=== PATIENT | male | born 1945 | race Caucasian/White ===

== ENCOUNTER → 2017-02-28 | Outpatient (CLI) | payer BC ==
[~2017-02-28] MED LIST: ASPI81TA28 PO; CEPH500C PO; CHOL20007 PO; CZR50 PO; GLUCTAB7 PO; LPT10 PO; OMEP40CA41 PO; PSEU60TA80 PO; URX/10 PO
[2017-02-28 17:14] LABS: BASO % 0.5 %; BASO ABS # 0.03 K/uL (0-0.2); COMPLETE YES; EOS % 2.5 %; HEMATOCRIT 39.6 % (42-52); IG% 0.2 %; LYMPH % 33.7 %; LYMPH ABS # 1.92 K/uL (1.2-3.4); MEAN CELL VOLUME 94.7 fL (80-100); MEAN CORPUSCULAR HEMOGLOBIN 30.9 pg (25-34); MEAN CORPUSCULAR HGB CONC 32.6 g/dl (32-36); MEAN PLATELET VOLUME 9.5 fL (7.4-10.4); MONO % 8.4 %; NEUT % 54.7 %; PLATELET COUNT 266 K/uL (130-400); RED BLOOD COUNT 4.18 M/uL (4.7-6.1)
[2017-02-28 17:21] LABS: ALT/SGPT 96 U/L (12-78); BLOOD UREA NITROGEN 21 mg/dl (7-18); BUN/CREATININE RATIO 19.2 (10-20); CALCIUM 8.8 mg/dl (8.5-10.1); CARBON DIOXIDE 27 mmol/L (21-32); CHLORIDE 107 mmol/L (98-107); CHOLESTEROL 129 mg/dl (0-200); GLUCOSE 95 mg/dl (70-99); POTASSIUM 4.2 mmol/L (3.5-5.1); SODIUM 140 mmol/L (136-145); TRIGLYCERIDES 93 mg/dl (0-150); VERY LOW DENSITY LIPOPROT CALC 19 mg/dl
[2017-02-28 17:24] LABS: ALB/GLOB RATIO 1.2 (0.9-2); ALKALINE PHOSPHATASE 73 U/L (45-117); AST/SGOT 30 U/L (15-37); CHOLESTEROL/HDL RATIO 2.3; HDL CHOLESTEROL 57 mg/dl; LDL CHOLESTEROL CALCULATED 53 mg/dl
== END | disposition home or self-care (01) ==
LOC: C.LABBC 14:51
PROVIDERS: ATTEND Internal Medicine Geriatric Medicine
DX: I10 Essential (primary) hypertension (principal); J32.9 Chronic sinusitis, unspecified; M19.90 Unspecified osteoarthritis, unspecified site; K58.9 Irritable bowel syndrome, unspecified

== ENCOUNTER → 2017-03-15 | Day surgery (SDC) | payer BC ==
[2017-03-03 11:59] VITALS: BMI 24.0
[~2017-03-15] VITALS: Ht 172.7 cm; Wt 72.7 kg
[~2017-03-15] MED LIST changes: -CEPH500C PO; -OMEP40CA41 PO; +PROPOFOL IV EMULSION 10 MG/ML 20 ML VIAL IV ONE; +SODIUM CHLORIDE 0.9% 500ML 500 ML IV ONE
[2017-03-15 08:08] VITALS: Ht 172.7 cm; Wt 72.7 kg
--- NOTE | 2017-03-15 08:41 | Endo History and Physical ---
History & Physical Date of Service: Mar 15, 2017. Chief Complaint: screening Referring Physician: Dr. Henry Zhu History of Present Illness 71 yo CM who presents for screening colonoscopy. Past Surgical History Hx Cardiac Surgery: No Hx Internal Defibrillator: No Hx Pacemaker: No Hx Abdominal Surgery: No Hx of Implantable Prosthesis: No Hx Post-Op Nausea and Vomiting: No Hx Cancer Surgery: No Hx Thoracic Surgery: No Hx Orthopedic: Yes (RT FOOT BUNIONECTOMY) Hx Urinary Tract Surgery: No Social History Smoking Status: Never Smoker Hx Substance Use: No Hx Alcohol Use: Yes (OCCASSIONALLY A GLASS OF WINE) Allergies Coded Allergies: Clarithromycin (Unverified Allergy, Unknown, UNKNOWN, 03/15/17) Current Medications Reported Home Medications Medications Dose Route/Sig Max Daily Dose Days Date Category Aspirin Ec (Aspirin) 81 Mg Tab 81 Mg PO QPM 03/03/17 Reported Glucosamine Chondroitin (Ogtfxulpkay-Grpsinupxfe-Zor C-) 1 Tab Tab 1 Tab PO BID 03/03/17 Reported Vitamin D3 (Cholecalciferol) 2,000 Unit Tab 5,000 Units PO QAM 90 03/03/17 Reported Mucinex D (Pseudoephedrine-Guaifenesin) 1 Tab Tab 1 Tab PO BID 10/15/15 Reported Alfuzosin HCl ER (Alfuzosin HCl) 10 Mg Tab 10 Mg PO QPM 10/15/15 Reported Losartan Potassium 50 Mg Tab 50 Mg PO QAM 10/15/15 Reported Atorvastatin Calcium (Atorvastatin) 10 Mg Tab 10 Mg PO QAM 10/15/15 Reported Vital Signs Weight (Kilograms): 72.73 Height (Feet): 5 Height (Inches): 8 Date Time Temp Pulse Resp B/P (MAP) Pulse Ox O2 Delivery O2 Flow Rate FiO2 03/15/17 08:13 36.1 81 18 154/81 (105) 97 Room Air Physical Exam General Appearance: WD/WN, no apparent distress Respiratory/Chest: Auscultation: breath sounds normal Cardiovascular: Heart Auscultation: RRR Abdomen: Bowel Sounds: normal Inspection & Palpation: soft, non-distended, no tenderness, guarding & rebound Assessment and Plan Assessment: 71 yo CM who presents for screening colonoscopy. Plan: Proceed with colonoscopy.
--- NOTE | 2017-03-15 09:01 | Discharge Instructions ---
Endoscopy Patient Instructions Date / Procedure(s) Performed Mar 15, 2017. Colonoscopy Allergy Information Coded Allergies: Clarithromycin (Unverified Allergy, Unknown, UNKNOWN, 03/15/17) Discharge Date / Findings Mar 15, 2017. Colon polyps Internal hemorrhoids Medication Instructions OK to resume all medications today as prescribed Reported Home Medications Medications Dose Route/Sig Max Daily Dose Days Date Category Aspirin Ec (Aspirin) 81 Mg Tab 81 Mg PO QPM 03/03/17 Reported Glucosamine Chondroitin (Dviewoahxzx-Bxwtolqrorh-Rfu C-) 1 Tab Tab 1 Tab PO BID 03/03/17 Reported Vitamin D3 (Cholecalciferol) 2,000 Unit Tab 5,000 Units PO QAM 90 03/03/17 Reported Mucinex D (Pseudoephedrine-Guaifenesin) 1 Tab Tab 1 Tab PO BID 10/15/15 Reported Alfuzosin HCl ER (Alfuzosin HCl) 10 Mg Tab 10 Mg PO QPM 10/15/15 Reported Losartan Potassium 50 Mg Tab 50 Mg PO QAM 10/15/15 Reported Atorvastatin Calcium (Atorvastatin) 10 Mg Tab 10 Mg PO QAM 10/15/15 Reported Provider Instructions Activity Restrictions - No exercising or heavy lifting for 24 hours. - Do not drink alcohol the day of the procedure. - Do not drive a car or operate machinery until the day after the procedure. - Do not make any important decisions or sign important papers in 24 hours after the procedure. Following Day: - Return to full activity which may include returning to work/school. Diet Start your diet with liquids and light foods (jello, soup, juice, toast). Then eat your usual diet if not nauseated. Treatment For Common After Affects For mild abdominal pain, bloating, or excessive gas: - Rest - Eat lightly - Lie on right side Follow-Up Information Follow-up with Dr. Henry Zhu as scheduled Anesthesia Information What You Should Know You have had a procedure that required some medicine to reduce anxiety and discomfort. This treatment is called moderate sedation. After receiving the treatment, you may be sleepy, but you will be able to breathe on your own. The effects of the treatment may last for several hours. Follow these instructions along with Activity/Diet recommendations noted above: * Do NOT do anything where dizziness or clumsiness would be dangerous. * Rest quietly at home today, then you can be up and about tomorrow. * Have a responsible person stay with you the rest of today. * You may have had an I.V. today. If so, you may take the dressing off later today. Recommendations Call your doctor if: * Trouble breathing * Continuous vomiting for more than 24 hours * Temperature above 101 degrees * Severe abdominal pain or bloating * Pain not relieved by pain medicine ordered * There is increased drainage or redness from any incision * A large amount of rectal bleeding greater than 2-3 tablespoons. (If you had a polyp/s removed or have hemorrhoids, a small amount of blood - from the rectum is to be expected.) * You have any unanswered questions or concerns. IN THE EVENT OF A SERIOUS EMERGENCY, GO TO THE NEAREST EMERGENCY ROOM Your discharge instructions were prepared by provider Obed Morris. Patient Instructions Signature Page French Pedro Patient (or Guardian) Signature/Date: I have read and understand the instructions given to me by my caregivers. Caregiver/RN/Doctor Signature/Date: The above-named patient and/or guardian has received patient instructions on this date. + Original Patient Signature Page (only) stays with chart. Please make copy for patient.
--- NOTE | 2017-03-15 09:06 | GI REPORT ---
Procedure Date: 03/15/2017 8:34 AM Procedure: Colonoscopy Indications: Screening for colorectal malignant neoplasm Medicines: Monitored Anesthesia Care Complications: No immediate complications. Estimated Blood Loss: Estimated blood loss: none. Procedure: Pre-Anesthesia Assessment: - Prior to the procedure, a History and Physical was performed, and patient medications and allergies were reviewed. The patient's tolerance of previous anesthesia was also reviewed. The risks and benefits of the procedure and the sedation options and risks were discussed with the patient. All questions were answered, and informed consent was obtained. Prior Anticoagulants: The patient has taken aspirin, last dose was 2 days prior to procedure. ASA Grade Assessment: II - A patient with mild systemic disease. After reviewing the risks and benefits, the patient was deemed in satisfactory condition to undergo the procedure. After I obtained informed consent, the scope was passed under direct vision. Throughout the procedure, the patient's blood pressure, pulse, and oxygen saturations were monitored continuously. The scope was introduced through the anus and advanced to the terminal ileum. The colonoscopy was performed without difficulty. The patient tolerated the procedure well. The quality of the bowel preparation was good. The terminal ileum, ileocecal valve, appendiceal orifice, and rectum were photographed. Findings: Two sessile polyps were found in the ascending colon. The polyps were 3 to 5 mm in size. These polyps were removed with a hot snare. Resection and retrieval were complete. Non-bleeding internal hemorrhoids were found during retroflexion. The hemorrhoids were small. Impression: - Two 3 to 5 mm polyps in the ascending colon, removed with a hot snare. Resected and retrieved. - Non-bleeding internal hemorrhoids. Recommendation: - Resume previous diet. - Continue present medications. - Await pathology results. - Repeat colonoscopy for surveillance based on pathology results. - Return to primary care physician as previously scheduled. Obed Morris DO 03/15/2017 9:06:07 AM This report has been signed electronically. Note Initiated On: 03/15/2017 8:34 AM I attest to the content of the Intraoperative Record and orders documented therein, exceptions below
--- NOTE | 2017-03-15 09:26 | Anesthesiology Progress Note ---
Anesthesia Post Op Note Date & Time Mar 15, 2017 at 09:26 Vital Signs Pain Intensity: 0 Vital Signs Past 12 Hours Date Time Temp Pulse Resp B/P (MAP) Pulse Ox O2 Delivery O2 Flow Rate FiO2 03/15/17 09:19 65 16 128/71 (90) 97 Room Air 03/15/17 09:04 67 16 99/55 (70) 97 Room Air 03/15/17 08:13 36.1 81 18 154/81 (105) 97 Room Air Notes Mental Status: alert / awake / arousable, participated in evaluation Pt Amnestic to Procedure: Yes Nausea / Vomiting: adequately controlled Pain: adequately controlled Airway Patency, RR, SpO2: stable & adequate BP & HR: stable & adequate Hydration State: stable & adequate Anesthetic Complications: no major complications apparent Awake, doing well, VSS.
[2017-03-15 09:34] VITALS: BP 134/81; PULSE 64; O2SAT 96
== END | disposition home health service (06) ==
LOC: C.GI 07:34
PROVIDERS: ATTEND Internal Medicine
DX: Z12.11 Encounter for screening for malignant neoplasm of colon (principal); D12.2 Benign neoplasm of ascending colon; K64.8 Other hemorrhoids; I10 Essential (primary) hypertension; Z88.1 Allergy status to other antibiotic agents; Z90.89 Acquired absence of other organs; Z79.82 Long term (current) use of aspirin

== ENCOUNTER → 2017-06-20 | Day surgery (SDC) | payer BC ==
[2017-06-10 08:07] VITALS: BMI 26.0
--- NOTE | 2017-06-10 08:41 | PAT Medication Instructions ---
Service Date Jun 10, 2017. Current Home Medication List Alfuzosin HCl (Alfuzosin HCl ER), 10 MG PO QPM Aspirin (Aspirin Ec), 81 MG PO QPM Atorvastatin (Atorvastatin Calcium), 10 MG PO QAM Cholecalciferol (Vitamin D3), 5,000 UNITS PO QAM Fluticasone Propionate (Nasal) (Flonase Allergy Relief), 2 SPRAYS RK UD PRN for PRN Cvesaqbmkyc-Rrptvmrqjqh-Nbd C- (Glucosamine Chondroitin), 1 TAB PO BID Losartan Potassium (Losartan Potassium), 50 MG PO QAM Protein (Whey Protein), 1 DOSE PO OCCASSIONALLY Pseudoephedrine-Guaifenesin (Mucinex D), 1 TAB PO BID Sildenafil Citrate (Viagra), 100 MG PO PRN Medication Instructions For Your Scheduled Surgery - Hold the following medications as of 06/10/17: Lhgbmmfiijy-Pjcgfyngzxz-Gfp C- (Glucosamine Chondroitin), 1 TAB PO BID - Hold the following medications 7 days prior to surgery per surgeon's instructions: Aspirin (Aspirin Ec), 81 MG PO QPM - Hold the following medications the morning of surgery: Cholecalciferol (Vitamin D3), 5,000 UNITS PO QAM Sildenafil Citrate (Viagra), 100 MG PO PRN Pseudoephedrine-Guaifenesin (Mucinex D), 1 TAB PO BID Losartan Potassium (Losartan Potassium), 50 MG PO QAM Protein (Whey Protein), 1 DOSE PO OCCASSIONALLY - Take the following medications the morning of surgery with a sip of water OTHERWISE NOTHING TO EAT OR DRINK AFTER MIDNIGHT: Atorvastatin (Atorvastatin Calcium), 10 MG PO QAM Fluticasone Propionate (Nasal) (Flonase Allergy Relief), 2 SPRAYS RK UD PRN for PRN - Take the following medications as scheduled the night before surgery: Pseudoephedrine-Guaifenesin (Mucinex D), 1 TAB PO BID Alfuzosin HCl (Alfuzosin HCl ER), 10 MG PO QPM If you have any questions please call us at [phone] or [phone] or [phone]
[2017-06-10 10:34] LABS: BASO % 0.6 %; BASO ABS # 0.04 K/uL (0-0.2); EOS % 2.1 %; EOS ABS # 0.14 K/uL (0-0.5); HEMATOCRIT 42.5 % (42-52); HEMOGLOBIN 14.3 g/dL (14.0-18.0); IG# 0.01 K/uL (0.00-0.02); LYMPH % 25.2 %; LYMPH ABS # 1.69 K/uL (1.2-3.4); MEAN CELL VOLUME 94.4 fL (80-100); MEAN CORPUSCULAR HEMOGLOBIN 31.8 pg (25-34); MEAN CORPUSCULAR HGB CONC 33.6 g/dl (32-36); MEAN PLATELET VOLUME 9.6 fL (7.4-10.4); MONO % 11.3 %; MONO ABS # 0.76 K/uL (0.11-0.59); NEUT % 60.7 %; NEUT ABS # 4.07 K/uL (1.4-6.5); PLATELET COUNT 255 K/uL (130-400); RED CELL DISTRIBUTION WIDTH SD 44.9 fL (36.4-46.3); WHITE BLOOD COUNT 6.71 K/uL (4.8-10.8)
[2017-06-10 10:41] LABS: CALCIUM 9.1 mg/dl (8.5-10.1); CREATININE 1.13 mg/dl (0.60-1.40); POTASSIUM 4.6 mmol/L (3.5-5.1)
[~2017-06-20] VITALS: Ht 170.2 cm; Wt 77.2 kg
[~2017-06-20] MED LIST changes: +AMIODARONE HCL INJ 50 MG/ML 3 ML VIAL ONE; +ATROPINE SULFATE 0.1 MG/ML 5ML SYR IV PRN; +BUPIVACAINE 0.5 % 5 MG/1 ML MPF 30ML VIAL ONE; +CEFAZOLIN 2000MG IV PUSH 10 ML IV SCH; +CEFAZOLIN SOD 1 GM VIAL ONE; +CEPH500C2 PO; +DEXAMETHASONE SOD INJ 4 MG/ML VIAL ONE; +EpHEDrine SULFATE INJ 50 MG/ML AMP IV PRN; +FENTANYL CITRATE INJ 50 MCG/1 ML 2 ML VIAL ONE; +FLUT0.15 NAE; +GLYCOPYRROLATE INJ 0.2 MG/ML VIAL ONE; +HYDR-5688 PO; +HYDROCODONE/ACETAMOPHEN 5/325MG TAB PO PRN; +HYDROmorphone INJ 1 MG/ML SYR IV PRN; +LACTATED RINGER'S 1000ML 1,000 ML IV SCH; +LIDOCAINE HCL 1% 20 ML VIAL ONE; +LIDOCAINE HCL 2% 2 ML VIAL (20MG/ML) ONE; +NEOSTIGMINE METHYLSULFATE 5 MG/5 ML SYR ONE; +ONDANSETRON INJ 2 MG/ML 2 ML VIAL IV PRN; +ONDANSETRON INJ 2 MG/ML 2 ML VIAL ONE; +PROT1POW7 PO; +ROCURONIUM BROMIDE 10 MG/ML 5 ML VIAL IV ONE; +SILD100T PO; -SODIUM CHLORIDE 0.9% 500ML 500 ML IV ONE
[2017-06-20 05:38] VITALS: BP 128/74; PULSE 83; TEMP 36.5; O2SAT 96; Ht 170.2 cm; Wt 77.2 kg
--- NOTE | 2017-06-20 06:48 | History & Physical Bridge Note ---
H&P Re-Evaluation Bridge Note: I have examined the patient, reviewed the History & Physical and in the interval since the performance of the History & Physical I have noted the following changes of clinical significance: No changes noted
--- NOTE | 2017-06-20 07:52 | [facility] Operative Report ---
Operative Report Operative Date Jun 20, 2017. Pre-Operative Diagnosis Left Inguinal Hernia Post-Operative Diagnosis Left Inguinal Hernia Procedure(s) Performed Laparoscopic Left Inguinal Hernia Repair Surgeon Dr. Reddy Bay Mailing Specialist Surgeon(s) Freddy Hinton PA-C Estimated Blood Loss 5ml Findings indirect Lt inguinal hernia Specimens no specimens per surgeon Dr. Reddy Bay Anesthesia gen Complication(s) None Disposition Recovery Room / PACU I attest to the content of the Intraoperative Record and any orders documented therein. Any exceptions are noted below.
--- NOTE | 2017-06-20 08:02 | Discharge Instructions ---
Discharge Instructions Date of Service Jun 20, 2017. Visit Reason for Visit: Left Inguinal Hernia Discharge Discharge Diagnosis / Problem: Lt inguinal hernia Discharge Goals Goal(s): Decrease discomfort, Improve function, Improve disease control Activity Recommendations Activity Limitations: as noted below Lifting Limitations: no more than 25 pounds Exercise/Sports Limitations: until after follow-up appointment May Resume Sexual Activity: when tolerated Shower/Bathe: tomorrow Driving or Machine Use: resume 3 days after discharge Anesthesia . Post Anesthesia Instructions: If you have had General Anesthesia or IV Sedation: * Do not drive today. * Resume driving when surgeon permits. * Do not make important decisions or sign legal documents today. * Call surgeon for: 1. Temperature elevations greater than 101 degrees F. 2. Uncontrollable pain. 3. Excessive bleeding. 4. Persistent nausea and vomiting. 5. Medication intolerance (nausea, vomiting or rash). * For nausea and vomiting use only clear liquids such as: tea, soda, bouillon until nausea subsides, then gradually increase diet as tolerated. * If you have any concerns or questions, call your surgeon's office. If physician is unavailable and it is an emergency, call 911 or go to the nearest emergency room. . Instructions / Follow-Up Instructions / Follow-Up SPECIAL CARE INSTRUCTIONS: * Cover incisions and change daily for comfort/drainage. May leave uncovered with dermabond * Avoid constipation- may use Senokot S and Milk of magnesia twice daily as directed on the package * May use ibuprofen for pain as tolerated. * Expect some swelling and bruising. Call your doctor if: * Temperature above 101 degrees * Pain not relieved by pain medicine ordered * There is increased drainage or redness from any incision * You have any unanswered questions or concerns [phone]. FOLLOW UP VISIT: If not already scheduled, please call the office for a follow-up visit. for 2 weeks- check up , no sutures to remove OFFICE PHONE NUMBER: Dr. Bay Office Diet Recommendations Recommended Home Diet: resume previous diet Procedures Procedures Performed: Laparoscopic Left Inguinal Hernia Repair Pending Studies Studies pending at discharge: no Medical Emergencies . Who to Call and When: Medical Emergencies: If at any time you feel your situation is an emergency, please call 911 immediately. . Non-Emergent Contact Non-Emergency issues call your: Primary Care Provider, Surgeon . . "Provider Documentation" section prepared by Reddy Bay. .
[2017-06-20] MEDS: FENTANYL CITRATE INJ 50 MCG/1 ML 2 ML VIAL IV PRN ×2 (08:10→08:15)
--- NOTE | 2017-06-20 08:28 | OPERATIVE REPORT ---
DATE OF OPERATION: 06/20/2017 NAME OF OPERATION: Laparoscopic left inguinal hernia repair. PREOPERATIVE DIAGNOSIS: Left inguinal hernia. POSTOPERATIVE DIAGNOSIS: Same. STAFF SURGEON: Dr. Reddy Bay. QUALITY ASSURANCE ASSISTANT: Freddy Hinton PA-C. ANESTHESIA: General. FINDINGS: The patient had a relatively large left inguinal hernia, which was an indirect defect, very small indentation on the left direct site and on the right, also a small indentation at the direct site, but no indirect hernia. DESCRIPTION OF PROCEDURE: The patient was brought in the operating room and placed on the operating table in supine position. His abdomen was prepped and draped in the usual fashion. Lane catheter, pneumatic stockings and orogastric tube were placed using 0.5% plain Marcaine, all incisions were anesthetized. Incision was made above the umbilicus, carrying dissection down to the fascia, placing a Veress needle producing pneumoperitoneum. An 11-mm port was placed at this level. The patient was placed in Trendelenburg position. On inspection, he had a moderate to large left indirect inguinal hernia with a small indentation at the direct site. On the right side, no indirect hernia and a small indentation at the direct site. At this point, the dissection was carried out on the left side, dissecting the peritoneum away from the abdominal wall, medial and superior to the defect carrying it medial to lateral. At this point, the patient had a small lipoma at the direct site and a sac at the indirect going through the internal ring. The sac was dissected free, mobilizing the tissue away from the cord structures. At this point, a piece of large 3D max mesh was placed into the defect. It was secured above the inguinal ligament from lateral to medial and then the peritoneum brought up over the mesh and secured using absorbable tacks and also clips. Pneumoperitoneum was reduced. All ports were removed. The fascia at the umbilicus closed using interrupted 0 Vicryl suture. Skin reapproximated using subcuticular 4-0 Monocryl and Dermabond. The patient was transferred to the recovery room in stable condition. I attest to the content of the Intraoperative Record and any orders documented therein. Any exception s are noted below.
[2017-06-20 09:00] VITALS: BP 124/61; PULSE 66; TEMP 36.4; O2SAT 92
--- NOTE | 2017-06-20 09:06 | Anesthesiology Progress Note ---
Anesthesia Post Op Note Date & Time Jun 20, 2017 at 09:06 Vital Signs Pain Intensity: 1 Vital Signs Past 12 Hours Date Time Temp Pulse Resp B/P (MAP) Pulse Ox O2 Delivery O2 Flow Rate FiO2 06/20/17 08:53 36.5 64 06/20/17 08:53 64 16 94 06/20/17 08:51 125/67 06/20/17 08:48 72 12 06/20/17 08:48 71 12 97 06/20/17 08:46 115/62 06/20/17 08:43 68 24 06/20/17 08:43 69 24 96 06/20/17 08:41 117/60 06/20/17 08:38 62 14 97 06/20/17 08:38 62 14 06/20/17 08:37 66 14 98 06/20/17 08:37 66 14 06/20/17 08:36 121/69 06/20/17 08:32 54 99 06/20/17 08:32 54 16 06/20/17 08:31 123/63 06/20/17 08:27 62 16 06/20/17 08:27 62 100 06/20/17 08:26 125/70 06/20/17 08:22 59 16 06/20/17 08:22 57 100 06/20/17 08:21 120/68 06/20/17 08:17 65 12 100 06/20/17 08:17 66 12 06/20/17 08:16 121/66 06/20/17 08:12 73 16 06/20/17 08:12 73 16 100 06/20/17 08:11 120/64 06/20/17 08:08 129/70 06/20/17 08:07 70 16 98 06/20/17 08:07 71 16 06/20/17 08:02 36.4 69 14 126/70 98 Oxymask 7 06/20/17 05:38 36.5 83 18 128/74 (92) 96 Room Air Notes Mental Status: alert / awake / arousable, participated in evaluation Pt Amnestic to Procedure: Yes Nausea / Vomiting: adequately controlled Pain: adequately controlled Airway Patency, RR, SpO2: stable & adequate BP & HR: stable & adequate Hydration State: stable & adequate Anesthetic Complications: no major complications apparent
[2017-06-20 09:30] VITALS: BP 128/64; PULSE 73; O2SAT 92
--- NOTE | 2017-06-20 09:36 | OPERATIVE REPORT ---
DATE OF OPERATION: 06/20/2017 ADDENDUM My mental health assistant, Freddy Hinton helped me with prepping, draping, entering the abdomen, exposing the procedure, and closing the abdomen. I attest to the content of the Intraoperative Record and any orders documented therein. Any exception s are noted below.
[2017-06-20 10:00] VITALS: BP 130/65; PULSE 67; O2SAT 93
[2017-06-20 10:30] VITALS: BP 131/68; PULSE 66; TEMP 36.5; O2SAT 94
== END | disposition home or self-care (01) ==
LOC: C.ACU 05:02
PROVIDERS: ATTEND Surgery
DX: K40.90 Unilateral inguinal hernia, without obstruction or gangrene, not specified as recurrent (principal); I10 Essential (primary) hypertension; Z90.89 Acquired absence of other organs; Z98.890 Other specified postprocedural states; Z79.899 Other long term (current) drug therapy; Z79.82 Long term (current) use of aspirin; Z88.1 Allergy status to other antibiotic agents; Z82.49 Family history of ischemic heart disease and other diseases of the circulatory system; Z80.1 Family history of malignant neoplasm of trachea, bronchus and lung

== ENCOUNTER → 2017-08-10 | Outpatient (CLI) | payer BC ==
[~2017-08-10] MED LIST changes: -AMIODARONE HCL INJ 50 MG/ML 3 ML VIAL ONE; -ATROPINE SULFATE 0.1 MG/ML 5ML SYR IV PRN; -BUPIVACAINE 0.5 % 5 MG/1 ML MPF 30ML VIAL ONE; -CEFAZOLIN 2000MG IV PUSH 10 ML IV SCH; -CEFAZOLIN SOD 1 GM VIAL ONE; -DEXAMETHASONE SOD INJ 4 MG/ML VIAL ONE; -EpHEDrine SULFATE INJ 50 MG/ML AMP IV PRN; -FENTANYL CITRATE INJ 50 MCG/1 ML 2 ML VIAL ONE; -GLYCOPYRROLATE INJ 0.2 MG/ML VIAL ONE; -HYDROCODONE/ACETAMOPHEN 5/325MG TAB PO PRN; -HYDROmorphone INJ 1 MG/ML SYR IV PRN; -LACTATED RINGER'S 1000ML 1,000 ML IV SCH; -LIDOCAINE HCL 1% 20 ML VIAL ONE; -LIDOCAINE HCL 2% 2 ML VIAL (20MG/ML) ONE; -NEOSTIGMINE METHYLSULFATE 5 MG/5 ML SYR ONE; -ONDANSETRON INJ 2 MG/ML 2 ML VIAL IV PRN; -ONDANSETRON INJ 2 MG/ML 2 ML VIAL ONE; -PROPOFOL IV EMULSION 10 MG/ML 20 ML VIAL IV ONE; -ROCURONIUM BROMIDE 10 MG/ML 5 ML VIAL IV ONE
== END | disposition home or self-care (01) ==
LOC: C.LAB 09:26
PROVIDERS: ATTEND Urology
DX: R97.20 Elevated prostate specific antigen [PSA] (principal); N52.9 Male erectile dysfunction, unspecified

== ENCOUNTER → 2017-09-21 | Outpatient (CLI) | payer BC | END | disposition home or self-care (01) | LOC: C.PATHSPEC 17:15 | PROVIDERS: ATTEND Urology | DX: N42.31 Prostatic intraepithelial neoplasia (principal); R97.20 Elevated prostate specific antigen [PSA] ==

== ENCOUNTER 2020-09-04 10:38 | Inpatient (IN) ==
--- NOTE | 2020-08-14 15:33 | PAT Medication Instructions ---
Medication Instructions Date of Service August 14, 2020 Home Medications Medication Instructions Recorded losartan 50 mg tablet 50 mg PO QAM #90 tab 02/20/20 alfuzosin 10 mg tablet,extended 10 mg PO QPM #90 tab 03/10/20 release 24 hr dupilumab 300 mg/2 mL subcutaneous 300 mg SQ .COMPLEX #12 ml 03/14/20 syringe ipratropium bromide 42 mcg (0.06 2 spray INTRANASAL DAILY #3 btl 05/07/ %) nasal spray aspirin 81 mg PO HS cholecalciferol (vitamin D3) [Vitamin D3] 5,000 unit PO QAM rggxepvrfyi-wejmhjikr-ceb C-Mn 500 mg-400 mg capsule 1 cap PO QAM sildenafil 100 mg tablet 100 mg PO DIRECTED PRN ascorbic acid (vitamin C) 500 mg tablet 500 mg PO QAM losartan 50 mg tablet 50 mg PO QAM prevagen 1 tab PO QAM turmeric root extract 500 mg capsule 500 mg PO QAM vitamins A,C,F-glae-zqknfd 7,160 unit-113 mg-100 unit tablet 1 tab PO BID alfuzosin 10 mg tablet,extended release 24 hr 10 mg PO QPM dupilumab 300 mg/2 mL subcutaneous syringe 300 mg SQ .COMPLEX ipratropium bromide 42 mcg (0.06 %) nasal spray 2 spray INTRANASAL DAILY fluticasone propionate 50 mcg/actuation nasal spray,suspension 2 spray INTRANASAL HS guaifenesin 1,200 mg tablet, extended release 12 hr 1,200 mg PO QAM ASK your prescriber and surgeon aspirin 81 mg PO HS dupilumab 300 mg/2 mL subcutaneous syringe 300 mg SQ .COMPLEX STOP taking 2 weeks before surgery (or as soon as possible if surgery is within 2 weeks) hcaxodlokyo-sfyhkcjpj-pax C-Mn 500 mg-400 mg capsule 1 cap PO QAM prevagen 1 tab PO QAM turmeric root extract 500 mg capsule 500 mg PO QAM vitamins A,C,G-lvxi-kfjvmi 7,160 unit-113 mg-100 unit tablet 1 tab PO BID DO NOT take the morning of surgery cholecalciferol (vitamin D3) [Vitamin D3] 5,000 unit PO QAM sildenafil 100 mg tablet 100 mg PO DIRECTED PRN ascorbic acid (vitamin C) 500 mg tablet 500 mg PO QAM losartan 50 mg tablet 50 mg PO QAM Take morning of surgery With a small sip of water, OTHERWISE NOTHING TO EAT OR DRINK AFTER MIDNIGHT: ipratropium bromide 42 mcg (0.06 %) nasal spray 2 spray INTRANASAL DAILY Take evening before surgery sildenafil 100 mg tablet 100 mg PO DIRECTED PRN (if needed) alfuzosin 10 mg tablet,extended release 24 hr 10 mg PO QPM fluticasone propionate 50 mcg/actuation nasal spray,suspension 2 spray INTRANASAL HS Other Notes If you have any questions please call us at [phone] or [phone] or [phone] or [phone]
--- NOTE | 2020-08-18 11:02 | Anesthesiology Consultation ---
Date of Service August 18, 2020 Assessment & Plan (1) Encounter for pre-operative examination: - Per assessment on 08/18: Travel screen negative. No known COVID-19 positive contacts or current COVID-19 related symptoms. Surgeon arranging preop COVID testing (scheduled 08/28; [facility]). Awaiting results. - S/P Laparoscopy left inguinal hernia repair (06/20/17): Grade view 1, MAC#3, ETT 7.5 at [facility] - S/P Incisional umbilical hernia repair (04/11/18): [place] [facility] [place]SA instructions: per surgeon/prescriber Chart Review Chart Review: Acceptable Risk for Surgery and Patient seen in Pre Admission T esting Teaching & Discussion Pre-Anesthesia Teaching/Discussion Notes: Instructed NPO after midnight before surgery,except medications with 15 cc of water. Medication instructions provided according to the PAT guidelines. History Surgery Operation Date: 09/04/20 10:20 Proposed Procedures p Robotic Laparoscopic Assisted Radical Retropubic Prostatectomy, Possible Open, Possible Pelvic Lymph Node Dissection, Possible Suprapubic Tube Placement - Roberto Mulligan, Height/Weight Height: 5 ft 8 in Weight: 76 kg Allergies Allergy/AdvReac Type Severity Reaction Status Date / Time clarithromycin Allergy Unknown Unknown Verified 08/18/20 10:58 remote reaction Medications Home Medications Medication Instructions Recorded Confirmed Last Taken aspirin 81 mg PO HS 03/24/18 08/14/20 05/13/19 20:00 cholecalciferol (vitamin D3) 5,000 unit PO QAM 03/24/18 08/14/20 10/08/19 [Vitamin D3] [id number]-soi C-Mn 500 1 cap PO QAM cap 01/15/19 08/14/20 10/08/19 08:00 mg-400 mg capsule sildenafil 100 mg tablet 100 mg PO DIRECTED PRN tab 01/15/19 08/14/20 Unknown ascorbic acid (vitamin C) 500 mg 500 mg PO QAM 11/26/19 08/14/20 Unknown tablet losartan 50 mg tablet 50 mg PO QAM #90 tab 02/20/20 08/14/20 Unknown prevagen 1 tab PO QAM 02/20/20 08/14/20 Unknown turmeric root extract 500 mg 500 mg PO QAM 02/20/20 08/14/20 Unknown capsule vitamins A,C,U-rgkw-upwrgz 7,160 1 tab PO BID 02/20/20 08/14/20 Unknown unit-113 mg-100 unit tablet alfuzosin 10 mg tablet,extended 10 mg PO QPM #90 tab 03/10/20 08/14/20 Unknown release 24 hr dupilumab 300 mg/2 mL subcutaneous 300 mg SQ .COMPLEX #12 ml 03/14/20 08/14/20 Unknown syringe ipratropium bromide 42 mcg (0.06 2 spray INTRANASAL DAILY #3 btl 05/07/20 08/14/20 Unknown %) nasal spray fluticasone propionate 50 2 spray INTRANASAL HS 07/17/20 08/14/20 Unknown mcg/actuation nasal spray,suspension guaifenesin 1,200 mg tablet, 1,200 mg PO QAM tab 07/17/20 08/14/20 Unknown extended release 12 hr garlic 1 tab PO DAILY 08/18/20 08/18/20 Unknown Past Medical History Medical History BPH (benign prostatic hyperplasia) Elevated PSA Hearing loss History of anemia History of basal cell carcinoma of skin Hypertension Macular degeneration Nasal polyps Organic impotence Osteoarthritis Exercise / Class Metabolic Activity II 4-5 Yardwork/Stairs/Walk up hill Past Family History Family History Mother , Passed age 80 of diabetic complications (brittle diabetic) Family history of diabetes mellitus Father , Passed age 57 from [place] Hypertension Brother , Passed in 70's of bladder cancer No problems noted. Brother Leukemia due to exposure at [employer] Brother , Passed in 70's of [place] No problems noted. Sister No problems noted. Son No problems noted. Daughter No problems noted. Other No family history of adverse response to anesthesia No family history of bleeding disorder Denies family history of Ovarian cancer Prostate cancer Breast cancer Colorectal cancer Past Surgical History Surgical History History of bunionectomy (1997) Right History of cataract surgery R/L History of colonoscopy (2017) + polypectomy History of endoscopic sinus surgery History of herniorrhaphy (2017) Umbilical x2 Laparoscopy left inguinal hernia repair (06/20/17): Grade view 1, MAC#3, ETT 7.5 at [facility] Incisional umbilical hernia repair (04/11/18): LMA#5 [place] [facility] [place] History of prostate biopsy (06/27/20) [place] 4+4, 3+4 History of tonsillectomy and adenoidectomy [place] teeth removed Past Anesthesia History No Hx of Anesthesia Complications and No Family Hx of Anesthesia Complications History of PONV No Hx of PONV and Hx of Motion Sickness Social History Smoking Status: Never smoker Do You Dip or Chew Tobacco: No Hx Alcohol Use: Yes Alcohol type: wine alcohol intake frequency: holidays/special occasions only substance use type: does not use Review of Systems Patient denies chest pain, shortness of breath, dyspnea on exertion, fever, chills, cough, wheezing, palpitations. Physical Exam Vital Signs VITALS BP 153/77 P 70 TEMP 98.0 SP02 94%RA RESP 16 PHYSICAL Full neck and c-spine range of motion. Full TMJ range of motion. TMD 3.5 finger breaths Mallampati Score 2 Dentition: missing molars, + permanent upper right bridge Lungs: clear throughout to auscultation Cardiac: regular rate and rhythm, no murmurs noted Spine: normal Carotid arteries: negative bruit Extremities: no edema Testing Laboratory Results 08/18/20 11:45 08/18/20 11:45 Blood Type A Positive 08/18/20 11:45 Antibody Screen NEGATIVE 08/18/20 11:45 Electrocardiogram Date: 08/18/20 Normal sinus rhythm at 67 bpm. Low voltage QRS. No significant change compared to 06/10/2017 per quick sketch artist review. Chest X-Ray Date: 08/18/20 FINDINGS: Cardiomediastinal and hilar silhouettes are within normal limits. Mild hyperinflation with diaphragmatic flattening. There is no pneumothorax, pleural effusion, airspace consolidation or overt pulmonary edema. Nipple shadow projects over the left lung base. Bones of the chest appear grossly intact. IMPRESSION: No acute process.
--- NOTE | 2020-08-18 12:19 | XRay Report ---
XR chest Pre-admission PA/Lat HISTORY: 75 years-old Male pat preoperative exam. No acute chest complaints COMPARISON: Chest radiographs 05/23/2019 TECHNIQUE: PA and lateral views of the chest FINDINGS: Cardiomediastinal and hilar silhouettes are within normal limits. Mild hyperinflation with diaphragma tic flattening. There is no pneumothorax, pleural effusion, airspace consolidation or overt pulmonary edema. Nipple shadow projects over the left lung base. Bones of the chest appear grossly intact. IMPRESSION: No acute process. ACT 112: Negative or not required by law. The above report was generated using voice recognition software. It may contain grammatical, syntax o r spelling errors. Electronically signed by: Arie Dejesus M.D. 08/18/2020 12:17 PM
[2020-08-18 12:23] LABS: Basophils # (auto) 0.02 K/uL (0-0.2); Basophils % (auto) 0.5 %; Eosinophils # (auto) 0.04 K/uL (0-0.5); Eosinophils % (auto) 0.9 %; Hematocrit (blood only) 40.2 % (42-52); Hemoglobin 13.8 g/dL (14.0-18.0); Lymphocytes # (auto) 1.27 K/uL (1.2-3.4); Lymphocytes % (auto) 29.7 %; Mean Corpuscular Hemoglobin 31.7 pg (25-34); Mean Corpuscular Hgb Conc 34.3 g/dL (32-36); Mean Corpuscular Volume 92.2 fL (80-100); Mean Platelet Volume 9.3 fL (7.4-10.4); Monocytes # (auto) 0.39 K/uL (0.11-0.59); Monocytes % (auto) 9.1 %; Neutrophils # (auto) 2.55 K/uL (1.4-6.5); Neutrophils % (auto) 59.8 %; Platelet Count 254 K/uL (130-400); RDW Coefficient of Variation 12.5 % (11.5-14.5); RDW Standard Deviation 42.4 fL (36.4-46.3); Red Blood Count 4.36 M/uL (4.7-6.1); White Blood Count 4.27 K/uL (4.8-10.8)
--- NOTE | 2020-08-18 13:24 | Electrocardiogram Report ---
Test Reason : Blood Pressure : / mmHG Vent. Rate : 067 BPM Atrial Rate : 067 BPM P-R Int : 188 ms QRS Dur : 098 ms QT Int : 404 ms P-R-T Axes : 067 072 062 degrees QTc Int : 426 ms Normal sinus rhythm Low voltage QRS Borderline ECG When compared with ECG of 10-JUN-2017 08:52, No significant change was found Confirmed by Taras Restrepo ([id number]) on 08/18/2020 1:23:47 PM Referred By: Roberto Mulligan Confirmed By:Taras Restrepo
[2020-08-18 15:31] LABS: Est GFR (African American) 72.3; Est GFR (Non-African American) 62.4; Potassium 4.4 mmol/L (3.5-5.1)
[2020-08-18 15:32] LABS: BUN Creatinine Ratio 21.4 (10-20)
[~2020-09-04 10:38] MED LIST changes: -ASPI81TA28 PO; -CEPH500C2 PO; -CHOL20007 PO; -CZR50 PO; -FLUT0.15 NAE; -GLUCTAB7 PO; +HEPARIN SOD 5,000 UNIT/0.5 ML VIAL SC SCH; -HYDR-5688 PO; +LIDOCAINE HCL 2% 2 ML VIAL/AMP(20MG/ML) INFIL ONE; -LPT10 PO; +LR 15ML/HR IV SCH; +MIDAZOLAM HCL 1 MG/ML 2ML VIAL ONE; +ONDANSETRON INJ 2 MG/ML 2 ML VIAL ONE; +PROPOFOL IV EMULSION 10 MG/ML 20 ML VIAL IV ONE; -PROT1POW7 PO; -PSEU60TA80 PO; +ROCURONIUM BROMIDE 10 MG/ML 5 ML VIAL IV ONE; -SILD100T PO; -URX/10 PO; +ceFAZolin 2000MG 2,000 MG/15 ML SYR IV SCH; +fentaNYL citrate 100 MCG/2 ML VIAL ONE
[2020-09-04] MEDS: LACTATED RINGER'S 1,000 ML IV SCH ×2 (11:30→20:21)
[2020-09-04] MEDS ORDERED: ePHEDrine sulfate 50 MG/ML AMP IV PRN (12:28)
[2020-09-04] MEDS ORDERED: ONDANSETRON INJ 2 MG/ML 2 ML VIAL IV PRN ×2 (12:28→20:09)
[2020-09-04] MEDS ORDERED: ATROPINE SULFATE 0.1 MG/ML 10ML SYR IV PRN (12:28)
[2020-09-04] MEDS ORDERED: ACETAMINOPHEN 1000 MG/100 ML IV IV ONE (13:13)
[2020-09-04] MEDS ORDERED: BUPIVACAINE 0.5 % 5 MG/1 ML MPF 30ML VIAL ONE (13:18)
--- NOTE | 2020-09-04 13:22 | History & Physical Bridge Note ---
Date of Service September 04, 2020 History & Physical Bridge Note I have examined the patient, reviewed the History & Physical and in the interval since the performance of the History & Physical I have noted the following changes of clinical significance: no changes noted
[2020-09-04] MEDS ORDERED: HYDROmorphone INJ 2 MG/ML SYR/VIAL ONE (14:49)
[2020-09-04] MEDS ORDERED: ALBUMIN HUMAN 5% 12.5 GM/250 ML VIAL IV ONE (15:13)
[2020-09-04] MEDS ORDERED: fentaNYL citrate 100 MCG/2 ML VIAL ONE (16:13)
[2020-09-04] MEDS ORDERED: VANCOMYCIN HCL 1000MG/20ML VIAL ONE (16:13)
[2020-09-04] MEDS ORDERED: ceFAZolin 2000MG 2,000 MG/15 ML SYR IV ONE (17:17)
[2020-09-04] MEDS ORDERED: PHENYLEPHRINE 100MCG/ML 5ML SYR ONE (17:23)
[2020-09-04] MEDS ORDERED: ONDANSETRON INJ 2 MG/ML 2 ML VIAL ONE (17:24)
[2020-09-04] MEDS ORDERED: GLYCOPYRROLATE 0.2 MG/ML VIAL ONE (17:24)
[2020-09-04] MEDS ORDERED: NEOSTIGMINE METHYLSULFATE 5 MG/5 ML SYR ONE (17:24)
[2020-09-04] MEDS ORDERED: KETOROLAC 30 MG/ML VIAL ONE (18:18)
--- NOTE | 2020-09-04 19:10 | Post Operative Brief Note ---
PG Immediate Post Op with CF Date of Surgery September 04, 2020 Pre & Post Diagnosis Operation Date: 09/04/20 12:20 Pre-Op Diagnosis: Prostate Cancer Post-Op Diagnosis: Prostate Cancer I identified the patient and participated in the time-out.: Yes Procedure Operation Date: 09/04/20 12:20 Actual Procedures p Robotic Laparoscopic Assisted Radical Retropubic Prostatectomy, Bilateral Pelvic Lymph Node Dissection, and Repair of Rectum - Roberto Mulligan, Surgeon Roberto Mulligan, II, DO Rope Laying Machine Operator Hao CHEEMA Estimated Blood Loss 150 Findings Consistent with Post-Op Diagnosis Severe adherence of posterior prostate at apex and base with rectal injury at apex. Specimens Specimen Description: A. left pelvic lymph node B. right pelvic lymph node C. prostate Drains Lane Catheter (18 cymro ramona placed intraoperatively) and Prashant-Aceves Drain Anesthesia Type General Complications none Disposition Disposition: Recovery Room Overlapping Procedure I was present for: the critical portions of procedure. I was immediately available: during the entire case. Back up surgeon: was not required during procedure.
[2020-09-04] MEDS: fentaNYL citrate 100 MCG/2 ML VIAL IV PRN ×2 (19:20→19:25)
--- NOTE | 2020-09-04 19:30 | Operative Report ---
PG Post Operative Report Pre & Post Diagnosis Operation Date: 09/04/20 12:20 Pre-Op Diagnosis: Prostate Cancer Post-Op Diagnosis: Prostate Cancer I identified the patient and participated in the time-out.: Yes Procedure Operation Date: 09/04/20 12:20 Actual Procedures p Robotic Laparoscopic Assisted Radical Retropubic Prostatectomy, Bilateral Pelvic Lymph Node Dissection, and Repair of Rectum - Roberto Mulligan DO Surgeon Roberto Mulligan, II, DO Car Whacker Hao CHEEMA Estimated Blood Loss 150 Findings Consistent with Post-Op Diagnosis Specimens Prostate and Seminal Vesicle Left Pelvic Lymph Nodes Right Pelvic Lymph Nodes. Drains 18 Fr [place] Tip Santillan catheter. Anesthesia Type General Complications none Disposition Disposition: Recovery Room Indications Patient with Prostate Cancer. Risk and benefits were discussed at length. Patient elected to undergo robotic assisted laparoscopic Radical Prostatectomy. Description of Procedure The patient was brought to the operative suite and placed under general endotracheal intubation anesthesia in the supine position. The patient was transferred to the dorsal lithotomy position. At this point, the patient prepped and draped in the usual sterile fashion and a timeout was completed. Preoperative antibiotics of Ancef 2 grams had been given. NIKITA's and SCD's were placed on the patient's lower extremities. A catheter was placed using sterile technique. With the time out completed the patient was placed into Trendelenburg and the skin at the umbilicus was anesthetized. A small incision was made superior to the umbilicus. A Varess Needle was placed and confirmed to be in the abdominal cavity. Water drop test passed. The Abdominal cavity was insufflated to 15 mmHG. The camera port was then placed. A laparoscopic camera was placed into the port and the abdominal cavity inspected. No concerning features were noted. At this point, the skin was marked for port placement and 8mm working ports were placed. The skin was anesthetized down to fascia and an approx 1cm incision was made to place the 3 x 8mm ports. A 12mm and 5 mm project administrative assistant ports were also placed in similar fashion under direct visualization. The patient was transferred into steep Trendelenburg position and the legs lowered. The robot was positioned and docked. The camera was placed and all trocars were positioned under direct visualization. Violet CHEEMA was integral in port placement, camera utilization, and docking procedure. She remained in sterile attire and then proceeded to assist the remainder of the case. At this point, I transitioned to the robotic console. At this point, the sigmoid colon was mobilized superiorly and the pelvis assessed. Adhesions were freed to allow mobilization. The peritoneum in the midline was opened between rectum and bladder and the vas deferens and seminal vesicles exposed. These were dissected with blunt technique. The vas was clipped and cut and mobilized. Cautery was used to assist dissection avoiding the tissue posteriorly near the rectum. The tissues lateral to the seminal vesicles were clipped with a hemolock and all bleeding controlled. This was taken as inferior as possible from this position. The medial umbilical ligaments were then identified and the peritoneum directly lateral on the right followed by the left was opened. The tissues were bluntly dissected to free the bladder's lateral attachments. This was taken down to the pubic bone and exposed the endopelvic fascia bilaterally. The medial ligaments were cut and the bladder dropped. The tissues was dissected anterior to the prostate. The endopelvic fascia on each side was then opened and the lateral edges of the prostate dissected. The Dorsal venous complex of the prostate was dissected and assessed. A 2-0 suture was used to ligate the vessels. A suspension stitch was used and clipped. The prostate was quite large and required significant retraction. Electrocautery was used to cut the anterior attachments, the puboprostatic ligaments, and venous tissues. The santillan was manipulated to better visual the bladder neck and dissection was taken using electrocautery. The bladder neck was opened and dissected from the prostate. The UO were identified and dissection taken in a direction to avoid each side. The vas stump and seminal vesicles were exposed and used to assist in traction to dissect. The prostatic pedicles were better exposed. The posterior prostate was dissected. An attempt was made to limit cautery and utilize cold dissection of the lateral posterior prostate to attempt preservation of the neurovascular bundle bilaterally. Hemolock clips were utilized to clip the prostatic pedicle bilaterally. Significant attachment and irregular tissue was noted throughout the right lateral moving along the neurovascular bundle this matched what was seen on MRI and was concerning for extracapsular spread. As dissection moved toward the Jamieson, the entire prostate became adhered. The plane between the prostate and rectum was lost due to this adherence. With manipulation the prostate appeared fixed at the apex bilaterally. The left border was freed with dissection but the right border remained fixed. During the dissection three areas of injury developed. At this point, a dose of Cefoxitin was given and the General Surgeon loss control consultant Dr. Sainz was alerted and came to assess to see if further resection was necessary. Careful dissection was taken further toward the apex and was eventually able to be freed. The dissection was taken to the apex of the prostate. The anterior prostate was released and the urethra exposed. Cold cutting was used to open the anterior portion and expose the catheter. This was removed and the urethra incised. The prostate was further freed and grasped and removed from the field. It was not felt that the rectum was grossly invaded and as such it was decided to repair the rectum as opposed to resecting or removing. The three areas were closed with a [id number] stitch with 2-0 Vicryl. This was then oversew with an additional 2-0 vicryl. Throughout the process vancomycin infused saline was irrigated. The patient had completed a bowel prep prior to surgery. A probe was placed and no other injuries or other issues were observed. The pelvis was t hen filled with the vanc-infused saline fluid and air was infused into the rectum as a leak test. No air leak was appreciated. The entire dissection bed was inspected. Hemostatic agent was placed in the region. No areas of injury or bleeding was noted. Care was taken to examine the perirectal tissues a final time. A 2-0 Vicryl suture was used to close an additional layer from the bladder to the periurethral tissues over the rectal repair. A 10 Fr Flat DEANNE drain was placed in the space. Additional saline irrigation was completed throughout the remainder of the case. The bladder neck and urethra were then approximated with a running barbed suture starting at the 5 o'clock position and moving to the 12 o'clock on each side. During the process the catheter had to be exchanged due to issues with passage likely due to swelling. Eventually after failing a few different attempts, a wire was placed an a [place] tip catheter was used. This was used until closure and exchanged for an 18 [place] tip at that time. A leak test was completed and at the anterior portion additional 2-0 Vicryl was used to further close. The tissue was edamatous but was able to be closed without any evidence of leak or issues. The right and left pelvic lymph tissue was identified in relation to the iliac vessels. Distal dissection was taken to the Node of Benjamín. Inferiorly the obturator vessels and nerve were identified. Lymphatic tissue within the surround fat tissue was dissected. This packet of tissues were sent for pathologic analysis and lymph node assessment. This was done for each separate side. Hemostatic agent was placed on the exposed vessels. The entire dissection space was inspected one final time. No bleeding or injuries or areas of concern were noted. No tumor or other concerning features were noted. A considerable amount of irrigant had been used through the process and this was attempted to be suctioned. At this point, the robot was undocked and moved away from the patient. The patient was taken out of Trendelenberg. The port sites were all assessed laparoscopically. The endoscopic bag was moved into the midline port. The 12mm port site had the DEANNE drain through it and it was fixed with a 3-0 Nylon suture. The other ports were assessed and no issues observed. The umbilical incision was opened further exposing fascia which was then opened in order to removed the prostate in the bag. The prostate was removed. A running 1-0 PDS suture was used to close fascia. The skin at each site was closed with Abram. The area was cleaned and bandages placed on each incision. The patient was cleaned and bandaged, aroused from anesthesia, and transferred to the pacu in stable condition having tolerated the procedure well with no complications. I was present and participated in all aspects of the procedure. DENI Bui was critical in the portions as mentioned above. Will plan to observe postoperatively and monitor. Santillan to be remain in place until followup. I attest to the content of the Intraoperative Record and any orders documented therein. Any exceptions are noted below.
[2020-09-04 19:49] LABS: Basophils # (auto) 0.01 K/uL (0-0.2); Basophils % (auto) 0.1 %; Hematocrit (blood only) 34.5 % (42-52); Hemoglobin 11.8 g/dL (14.0-18.0); Immature Granulocytes # (auto) 0.04 K/uL (0.00-0.02); Immature Granulocytes % (auto) 0.3 %; Lymphocytes # (auto) 0.96 K/uL (1.2-3.4); Lymphocytes % (auto) 7.3 %; Mean Corpuscular Hemoglobin 31.8 pg (25-34); Mean Platelet Volume 8.9 fL (7.4-10.4); Monocytes % (auto) 3.8 %; Neutrophils # (auto) 11.56 K/uL (1.4-6.5); Neutrophils % (auto) 88.5 %; Platelet Count 232 K/uL (130-400); RDW Coefficient of Variation 12.7 % (11.5-14.5); RDW Standard Deviation 43.4 fL (36.4-46.3); Red Blood Count 3.71 M/uL (4.7-6.1); White Blood Count 13.07 K/uL (4.8-10.8)
--- NOTE | 2020-09-04 19:51 | Anesthesiology Progress Note ---
Date of Service September 04, 2020 Anesthesia Post Procedure Vital Signs Vital Signs: Temp Pulse Pulse Resp BP Pulse Ox 09/04/20 19:40 86 17 135/71 96 09/04/20 19:30 81 14 141/71 H 99 09/04/20 19:20 86 12 154/70 H 92 09/04/20 19:10 36.4 C L 88 16 153/77 H 96 09/04/20 11:05 36.7 C 81 20 160/78 H 95 Pain Intensity Abdomen: Pain Intensity: 0 Transfer of Care Handoff Completed per policy Notes Mental Status: alert / awake / arousable Patient Amnestic to Procedure: Yes Nausea / Vomiting: adequately controlled Pain: adequately controlled Airway Patency, RR, SpO2: stable & adequate BP & HR: stable & adequate Hydration State: stable & adequate Anesthetic Complications: no major complications apparent
[2020-09-04 20:08] LABS: BUN Creatinine Ratio 14.3 (10-20); Calcium 8.3 mg/dl (8.5-10.1); Creatinine Clr Calc Pharmacy 34.2 ml/min; Est GFR (African American) 42.6; Est GFR (Non-African American) 36.7; Potassium 4.2 mmol/L (3.5-5.1)
[2020-09-04] MEDS ORDERED: ACETAMINOPHEN 325 MG TAB PO PRN (20:09)
[2020-09-04] MEDS ORDERED: oxyCODONE HCL IR 5 MG TAB (IMMEDIATE RELEASE) PO PRN ×2 (20:09)
[2020-09-04] MEDS ORDERED: MoRPHine SULFATE 2 MG/ML CARP IV PRN (20:17)
[2020-09-04 20:20] LABS: Mean Corpuscular Hgb Conc 34.2 g/dL (32-36)
[2020-09-04] MEDS: FLUTICASONE PROPIONATE NA SPR 16 GM BTL SCH (22:07)
[2020-09-04] MEDS: cefOXitin 2,000 MG in DEXTROSE 5% 50 ML IV SCH (22:08)
[2020-09-05] MEDS: MoRPHine SULFATE 2 MG/ML CARP IV PRN ×6 (02:05→23:46)
[2020-09-05] MEDS: cefOXitin 2,000 MG in DEXTROSE 5% 50 ML IV SCH ×4 (04:04→21:06)
[2020-09-05] MEDS: LACTATED RINGER'S 1,000 ML IV SCH ×3 (05:15→15:52)
[2020-09-05 05:51] LABS: Hematocrit (blood only) 34.1 % (42-52); Hemoglobin 11.3 g/dL (14.0-18.0); Immature Granulocytes # (auto) 0.02 K/uL (0.00-0.02); Immature Granulocytes % (auto) 0.2 %; Lymphocytes # (auto) 0.85 K/uL (1.2-3.4); Lymphocytes % (auto) 7.7 %; Mean Corpuscular Hemoglobin 31.5 pg (25-34); Mean Corpuscular Hgb Conc 33.1 g/dL (32-36); Mean Platelet Volume 9.2 fL (7.4-10.4); Monocytes # (auto) 0.92 K/uL (0.11-0.59); Monocytes % (auto) 8.4 %; Neutrophils # (auto) 9.22 K/uL (1.4-6.5); Neutrophils % (auto) 83.7 %; Platelet Count 226 K/uL (130-400); RDW Coefficient of Variation 12.8 % (11.5-14.5); RDW Standard Deviation 44.5 fL (36.4-46.3); Red Blood Count 3.59 M/uL (4.7-6.1); White Blood Count 11.01 K/uL (4.8-10.8)
[2020-09-05 06:24] LABS: BUN Creatinine Ratio 15.1 (10-20); Creatinine Clr Calc Pharmacy 35.8 ml/min; Est GFR (African American) 45.1; Est GFR (Non-African American) 38.9; Potassium 4.6 mmol/L (3.5-5.1)
[2020-09-05] MEDS: HEPARIN SOD 5,000 UNIT/0.5 ML VIAL SQ SCH ×2 (08:18→20:57)
[2020-09-05] MEDS: IPRATROPIUM BROMIDE NASAL SPRAY 0.06% 15ML SCH (08:18)
[2020-09-05] MEDS: ASCORBIC ACID 500 MG TAB PO SCH (08:19)
[2020-09-05] MEDS: LOSARTAN POTASSIUM 50 MG TAB PO SCH (08:19)
[2020-09-05] MEDS: CHOLECALCIFEROL 1,000 UNITS 25 MCG TAB PO SCH (08:19)
[2020-09-05] MEDS: CEROVITE ADV FORMULA TAB PO SCH (08:20)
--- NOTE | 2020-09-05 10:35 | Urology Progress Note ---
Date of Service September 05, 2020 Assessment & Plan (1) Prostate cancer: Postop day 1 status post robot-assisted laparoscopic prostatectomy with bilateral pelvic lymph node dissection and repair of rectum. Patient tolerated procedure well. During the procedure the prostate was found to be severely fixed at the apex to the rectal wall. During dissection additional tissue was resected and caused opening with into the rectal cavity. General surgery was brought in to assess with Dr. Sainz. At that time it was felt the area could be closed and repaired with plans to leave a drain. The area was sewn and tissue was then complicated over an additional tissue close over top. A drain was then placed. The base of the bladder was then sutured as to cover the area. Discussed at length findings with patient. Had on MRI imaging concern for posterior/lateral extracapsular extension. Would be concerned as tissue was fixed to the rectal wall especially at the right apex. This is the area that also had the deepest resection. Patient will maintain catheter and drain and will continue on broad-spectrum antibiotics with Mefoxin. Patient is otherwise tolerating. Is tolerating diet. Has slowly increased activity. Has been maintained on a liquid diet. We will plan to consult GI for further assessment as well as plans for outpatient work-up and management. Will likely need scope at some point and will likely need to consider further assessment especially if prostate cancer is found to be invading outside of the prostate capsule and into deeper tissues. May also need assessed for rectal mass with scope but this would likely be after a time of healing. Would also appreciate recommendations for diet in the postoperative period. Will maintain liquids for now. Patient is hydrating well. Is not having considerable nausea or discomfort. Is having moderate pain and discomfort. Had a moderate amount of seepage of fluid from the drain opening likely due to the large amount irrigation used throughout the case. This is decreased. Continues to monitor DEANNE output. We will plan to continue to monitor. We will likely continue antibiotics with plans for Cipro and Flagyl oral for 1 week after the procedure. We will monitor for other issues and concerns. Continue to follow. Admission and Anticipated Discharge Date Admission Date: September 04, 2020 Subjective Postop from urologic surgery. Patient has been tolerating well, but is having some pain and discomfort. Incisions have been mild sore. Having some abdominal distension/gas pains. Has tolerated catheter. Has not had severe pain or uncontrollable pain. Patient has been ambulating. Has not had bowel movement or major change. No new nausea or vomiting. Had tolerated anesthesia without major problems Tolerated liquid diet postoperatively. Review of Systems Review of Systems: All systems reviewed & are unremarkable except as noted in HPI & below Physical Exam Physical Exam: General: Alert in no acute distress. HEENT: Normocephalic Atraumatic. Inspection normal. Cranial Nerves 2-12 Grossly intact. Normal inspection of face. Normal inspection of neck. Psychologic: Normal affect. Respiratory: Nonlabored. No use of accessory muscles. No tachypnea or dyspnea. Cardiovascular: No tachycardia Skin: [place] and Dry. No rashes or visible lesions. Extremities/Lymphatics: No edema Abdomen: Appropriately tender. Mild distended. No rebound or guarding. Wound: Clean, dry, covered. Results & Data ([facility]) Vital Signs (Past 12 Hours) Vital Signs Temp Pulse Resp BP Pulse Ox 09/05/20 07:27 37.0 C 80 16 151/70 H 95 09/05/20 06:30 36.7 C 84 14 137/71 96 09/05/20 03:31 36.9 C 82 18 159/74 H 98 09/05/20 01:30 36.7 C 75 14 153/75 H 99 09/04/20 23:10 36.6 C 75 14 154/75 H 98 PG Care Time/CCT Total # of Minutes Spent Total Time Spent with Patient: Total time spent is greater than 50% in coordination of care (as documented) at patient's floor/unit and/or counseling patient: Coding Level of Care Code 68084 Subseq Hosp Care Lvl 2 Diagnoses Prostate cancer C61
--- NOTE | 2020-09-05 11:59 | Gastrointestinal Consultation ---
Date of Consultation September 05, 2020 Assessment & Plan (1) Rectal trauma: Discussed with Dr. Morris. If there is concern for rectal trauma or perforation, consider contrast enhanced CT imaging of the abdomen/pelvis for further evaluation. As for colonoscopy, we can arrange this as an outpatient when acute issues resolve. Supervising Physician Co-Signing Physician Notes Agree with NATHALIA Stiles as above Abd: Soft, NT, ND, +BS Advance diet as per surgery, as they did repair of perforated rectum Doing well at present, but would perform contrast enhanced CT abd/pelvis if symptoms worsen Continue current therapy and supportive care Outpatient colonoscopy in 8-12 weeks History of Present Illness Reason for Consultation: "Prostate cancer postop with rectal injury" Attending Physician: Roberto Mulligan, II, DO History of Present Illness Patient is a 75 yo male who underwent robot-assisted laparoscopic prostatectomy on 09/04/20 for prostate cancer. The patient is recovering well from surgery, however reportedly there is questionable complications involved possible perforation of the rectum. It is documented that general surgery was called to advise during the procedure. The patient currently has no abdominal pain, bowel issues, or rectal bleeding. He is currently on a clear liquid diet. He has had a colonoscopy in the past, most recently in [address] Morris during which time multiple tubular adenomas were removed. GI has been consulted for guidance. Allergies Allergy/AdvReac Type Severity Reaction Status Date / Time clarithromycin Allergy Unknown Unknown Verified 09/04/20 11:03 remote reaction Home Medications Medication Instructions Recorded Confirmed Type aspirin 81 mg PO HS 03/24/18 09/04/20 History cholecalciferol (vitamin D3) 5,000 unit PO QAM 03/24/18 09/04/20 History [Vitamin D3] hvuhgnqdwrh-vyzxqfvbs-wno C-Mn 500 1 cap PO QAM cap 01/15/19 08/22/20 History mg-400 mg capsule sildenafil 100 mg tablet 100 mg PO DIRECTED PRN tab 01/15/19 09/04/20 History ascorbic acid (vitamin C) 500 mg 500 mg PO QAM 11/26/19 09/04/20 History tablet losartan 50 mg tablet 50 mg PO QAM #90 tab 02/20/20 09/04/20 Rx prevagen 1 tab PO QAM 02/20/20 09/04/20 History turmeric root extract 500 mg 500 mg PO QAM 02/20/20 08/22/20 History capsule vitamins A,C,C-hvvj-dpvlrf 7,160 1 tab PO BID 02/20/20 08/22/20 History unit-113 mg-100 unit tablet alfuzosin 10 mg tablet,extended 10 mg PO QPM #90 tab 03/10/20 09/04/20 Rx release 24 hr ipratropium bromide 42 mcg (0.06 2 spray INTRANASAL DAILY #3 btl 05/07/20 09/04/20 Rx %) nasal spray fluticasone propionate 50 2 spray INTRANASAL HS 07/17/20 08/22/20 History mcg/actuation nasal spray,suspension guaifenesin 1,200 mg tablet, 1,200 mg PO QAM tab 07/17/20 09/04/20 History extended release 12 hr garlic 1 tab PO DAILY 08/18/20 08/22/20 History Boost 1 PO DAILY 08/19/20 08/22/20 History dupilumab 300 mg/2 mL subcutaneous 300 mg SQ .COMPLEX #12 ml 08/21/20 09/04/20 Rx syringe Patient History Medical History (Updated 09/05/20 @ 12:06 by Seble Chavez PA-C) BPH (benign prostatic hyperplasia) Elevated PSA Hearing loss History of anemia History of basal cell carcinoma of skin Hypertension Macular degeneration Nasal polyps Organic impotence Osteoarthritis Surgical History History of bunionectomy (1997) Right History of cataract surgery R/L History of colonoscopy (2017) + polypectomy History of endoscopic sinus surgery History of herniorrhaphy (2017) Umbilical x2 Laparoscopy left inguinal hernia repair (06/20/17): Grade view 1, MAC#3, ETT 7.5 at [facility] Incisional umbilical hernia repair (04/11/18): LMA#5 at [facility] [place] History of prostate biopsy (06/27/20) [place] 4+4, 3+4 History of tonsillectomy and adenoidectomy [place] teeth removed Family History Mother , Passed age 80 of diabetic complications (brittle diabetic) Family history of diabetes mellitus Father , Passed age 57 from [place] Hypertension Brother , Passed in 70's of bladder cancer No problems noted. Brother Leukemia due to exposure at [employer] Brother , Passed in 70's of [place] No problems noted. Sister No problems noted. Son No problems noted. Daughter No problems noted. Other No family history of adverse response to anesthesia No family history of bleeding disorder Denies family history of Ovarian cancer Prostate cancer Breast cancer Colorectal cancer Social History Smoking Status: Never smoker Second Hand Exposure: No; Do You Dip or Chew Tobacco: No; Hx Alcohol Use: Yes Alcohol type: wine Alcohol Intake Frequency: Monthly or Less Alcohol Intake Frequency Comment: Occasional Preferred Language: Honduran Communication Ability: Effective Visual Impairment: Limited Hearing Ability: Use of Hearing Aid Caster Helper Required: No Beliefs That Will Affect Care: None marital status: Current Living Situation: Spouse current occupational status: retired 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 How many Children do You have: 2 Feels Safe at Home: Yes Safety Concerns: Feels Safe At This Time Childhood Exposure to Second-Hand Smoke: No Diet Comment: Regular caffeine: Yes (occasional cup of coffee) during the past year weight has: remained stable Dental Care, Regularly: Yes Physical Activity Frequency: Daily Physical Activity Frequency Comment: yoga, hiking, biking, weights, line dance Seatbelt Use: always Sunscreen Use: Yes Assistive Devices: Glasses and Hearing Aid - Bilateral Review of Systems Constitutional: no fever and no chills Respiratory: no cough and no dyspnea Cardiovascular: no chest pain Gastrointestinal: no abdominal pain and no blood in stools Physical Exam Constitutional: well developed Respiratory: normal respiratory effort Gastrointestinal (Abdomen): Inspection/Auscultation: abdomen normal to inspection Percussion/Palpation: abdomen soft; abdomen nontender Musculoskeletal: Head/Neck/Chest: normocephalic Psychiatric: A+Ox3, euthymic affect Results & Data ([facility] [place]) Vital Signs (Past 12 Hours) Vital Signs Temp Pulse Resp BP Pulse Ox 09/05/20 11:24 36.9 C 79 16 142/66 H 94 09/05/20 07:27 37.0 C 80 16 151/70 H 95 09/05/20 06:30 36.7 C 84 14 137/71 96 09/05/20 03:31 36.9 C 82 18 159/74 H 98 09/05/20 01:30 36.7 C 75 14 153/75 H 99 PG Care Time/CCT Total # of Minutes Spent Total Time Spent with Patient: Total time spent is greater than 50% in coordination of care (as documented) at patient's floor/unit and/or counseling patient: Coding Level of Care Code 50714 Initial Inpt Care Lvl 2 Diagnoses Rectal trauma S36.60XA
[2020-09-05] MEDS: FLUTICASONE PROPIONATE NA SPR 16 GM BTL SCH (20:56)
[2020-09-06] MEDS: LACTATED RINGER'S 1,000 ML IV SCH ×3 (01:43→21:03)
[2020-09-06] MEDS: MoRPHine SULFATE 2 MG/ML CARP IV PRN ×2 (04:26→08:16)
[2020-09-06] MEDS: cefOXitin 2,000 MG in DEXTROSE 5% 50 ML IV SCH ×4 (04:26→21:02)
[2020-09-06 06:21] LABS: Basophils # (auto) 0.02 K/uL (0-0.2); Basophils % (auto) 0.2 %; Eosinophils # (auto) 0.02 K/uL (0-0.5); Eosinophils % (auto) 0.2 %; Hematocrit (blood only) 32.2 % (42-52); Hemoglobin 10.6 g/dL (14.0-18.0); Immature Granulocytes # (auto) 0.02 K/uL (0.00-0.02); Immature Granulocytes % (auto) 0.2 %; Lymphocytes # (auto) 1.55 K/uL (1.2-3.4); Mean Corpuscular Hemoglobin 31.3 pg (25-34); Mean Corpuscular Hgb Conc 32.9 g/dL (32-36); Mean Platelet Volume 9.1 fL (7.4-10.4); Monocytes # (auto) 0.72 K/uL (0.11-0.59); Monocytes % (auto) 8.8 %; Neutrophils # (auto) 5.82 K/uL (1.4-6.5); Neutrophils % (auto) 71.6 %; Platelet Count 188 K/uL (130-400); Red Blood Count 3.39 M/uL (4.7-6.1); White Blood Count 8.15 K/uL (4.8-10.8)
[2020-09-06 06:54] LABS: BUN Creatinine Ratio 10.6 (10-20); Calcium 8.1 mg/dl (8.5-10.1); Creatinine Clr Calc Pharmacy 44.7 ml/min; Est GFR (African American) 58.8; Est GFR (Non-African American) 50.7; Potassium 4.2 mmol/L (3.5-5.1)
[2020-09-06] MEDS: ASCORBIC ACID 500 MG TAB PO SCH (08:26)
[2020-09-06] MEDS: CHOLECALCIFEROL 1,000 UNITS 25 MCG TAB PO SCH (08:27)
[2020-09-06] MEDS: LOSARTAN POTASSIUM 50 MG TAB PO SCH (08:27)
[2020-09-06] MEDS: CEROVITE ADV FORMULA TAB PO SCH (08:28)
[2020-09-06] MEDS: IPRATROPIUM BROMIDE NASAL SPRAY 0.06% 15ML SCH (08:28)
[2020-09-06] MEDS: HEPARIN SOD 5,000 UNIT/0.5 ML VIAL SQ SCH ×2 (08:28→21:02)
[2020-09-06] MEDS ORDERED: KETOROLAC TROMETHAMINE 15 MG/ML VIAL IM PRN (10:01)
--- NOTE | 2020-09-06 10:04 | Urology Progress Note ---
Date of Service September 06, 2020 Assessment & Plan (1) Prostate cancer: Postop day 2 status post prostatectomycomplex course with rectal injury repair during the surgery Has been tolerating clear liquids, no bowel function yet We will advance to a low residue diet Creatinine returning towards baseline as would be expected I will add Toradol 15 mg every 6 hours for pain control with the hope of avoiding severe constipation from narcotics Liliane-Colace added to his medical regimen No leukocytosis, no feversall encouraging signs I would like to observe him for at least 1 additional day before discharge home Admission and Anticipated Discharge Date Admission Date: September 04, 2020 Subjective Progressing appropriately after recent prostatectomycomplex surgery He has appropriate levels of abdominal discomfort, he has not yet passed flatus or had any bowel function He is hungry He is not nauseated He has had no fevers He has been ambulatory in the room Review of Systems Review of Systems: All systems reviewed & are unremarkable except as noted in HPI & below Physical Exam Physical Exam: Incisions were uncovered and left open to air Abram in place No erythema, no bruising, no drainage from any incision Minimal distention of the abdomenappropriate Minimal tendernessappropriate Urine clear DEANNE serosanguineous Results & Data ([facility]) Vital Signs (Past 12 Hours) Vital Signs Temp Pulse Resp BP Pulse Ox 09/06/20 07:35 37.0 C 73 18 158/78 H 93 09/05/20 22:46 37.3 C 80 18 158/74 H 94 PG Care Time/CCT Total # of Minutes Spent Total Time Spent with Patient: Total time spent is greater than 50% in coordination of care (as documented) at patient's floor/unit and/or counseling patient: Coding Level of Care Code 17246 Subseq Hosp Care Lvl 3 Diagnoses Prostate cancer C61
[2020-09-06] MEDS: KETOROLAC TROMETHAMINE 15 MG/ML VIAL IV PRN ×2 (11:46→18:04)
[2020-09-06] MEDS: DOCUSATE SODIUM/SENNA 50/8.6MG TAB PO SCH (13:25)
[2020-09-06] MEDS: FLUTICASONE PROPIONATE NA SPR 16 GM BTL SCH (21:02)
[2020-09-07] MEDS: KETOROLAC TROMETHAMINE 15 MG/ML VIAL IV PRN (01:52)
[2020-09-07] MEDS: cefOXitin 2,000 MG in DEXTROSE 5% 50 ML IV SCH ×2 (03:29→10:15)
[2020-09-07 06:06] LABS: Basophils # (auto) 0.01 K/uL (0-0.2); Basophils % (auto) 0.1 %; Eosinophils % (auto) 1.2 %; Hematocrit (blood only) 31.1 % (42-52); Hemoglobin 10.4 g/dL (14.0-18.0); Immature Granulocytes # (auto) 0.02 K/uL (0.00-0.02); Immature Granulocytes % (auto) 0.2 %; Lymphocytes # (auto) 1.57 K/uL (1.2-3.4); Lymphocytes % (auto) 19.2 %; Mean Corpuscular Hgb Conc 33.4 g/dL (32-36); Mean Corpuscular Volume 92.8 fL (80-100); Mean Platelet Volume 8.9 fL (7.4-10.4); Monocytes # (auto) 0.79 K/uL (0.11-0.59); Monocytes % (auto) 9.6 %; Neutrophils % (auto) 69.7 %; Platelet Count 182 K/uL (130-400); RDW Coefficient of Variation 12.4 % (11.5-14.5); RDW Standard Deviation 42.5 fL (36.4-46.3); Red Blood Count 3.35 M/uL (4.7-6.1); White Blood Count 8.19 K/uL (4.8-10.8)
[2020-09-07 06:46] LABS: BUN Creatinine Ratio 14.4 (10-20); Calcium 7.9 mg/dl (8.5-10.1); Creatinine Clr Calc Pharmacy 50.3 ml/min; Est GFR (African American) 67.9; Est GFR (Non-African American) 58.6; Potassium 4.2 mmol/L (3.5-5.1)
[2020-09-07] MEDS: LACTATED RINGER'S 1,000 ML IV SCH (08:11)
[2020-09-07] MEDS: IPRATROPIUM BROMIDE NASAL SPRAY 0.06% 15ML SCH (08:12)
[2020-09-07] MEDS: CHOLECALCIFEROL 1,000 UNITS 25 MCG TAB PO SCH (08:13)
[2020-09-07] MEDS: CEROVITE ADV FORMULA TAB PO SCH (08:13)
[2020-09-07] MEDS: DOCUSATE SODIUM/SENNA 50/8.6MG TAB PO SCH (08:13)
[2020-09-07] MEDS: ASCORBIC ACID 500 MG TAB PO SCH (08:13)
[2020-09-07] MEDS: LOSARTAN POTASSIUM 50 MG TAB PO SCH (08:13)
[2020-09-07] MEDS: HEPARIN SOD 5,000 UNIT/0.5 ML VIAL SQ SCH (08:15)
--- NOTE | 2020-09-07 08:26 | Urology Progress Note ---
Date of Service September 07, 2020 Assessment & Plan (1) Prostate cancer: Status post prostatectomy earlier this weekcomplex case Recovery very much on pace Plan to DC drain today, plan to DC home We will cover with Cipro and Flagyl as a precautionary measure given rectal involvement We will remain on a low residue diet at home for the next 2 weeks Stool softeners at home Follow-up as an outpatient to review pathology Admission and Anticipated Discharge Date Admission Date: September 04, 2020 Subjective Has continued to progress well No major issues We advanced the diet to a low fiber/low residue diet yesterday and he has tolerated this well Feeling some flatus now, no full bowel movements yet He has had no change in symptoms No change in drain output in terms of volume or quality Feels well Physical Exam Physical Exam: Incisions appropriate, no erythema, no discharge, no infectious signs Drain serosanguineous, urine clear Results & Data ([facility]) Vital Signs (Past 12 Hours) Vital Signs Temp Pulse Resp BP Pulse Ox 09/07/20 07:38 37.5 C 76 18 163/79 H 93 09/07/20 00:57 36.7 C 72 14 152/76 H 96 PG Care Time/CCT Total # of Minutes Spent Total Time Spent with Patient: Total time spent is greater than 50% in coordination of care (as documented) at patient's floor/unit and/or counseling patient: Coding Level of Care Code 59307 Subseq Hosp Care Lvl 2 Diagnoses Prostate cancer C61
--- NOTE | 2020-09-11 09:25 | Discharge Summary ---
Date of Service September 11, 2020 Admission HPI Per Admitting Provider See H&P Admission Exam Per Admitting Provider See H&P Principal Diagnosis Prostate Cancer Discharge Exam General: Alert in no acute distress. HEENT: Normocephalic Atraumatic. Inspection normal. Psychologic: Normal affect. Skin: [place] and Dry. No rashes or visible lesions. Abdomen: Soft Non-distended. No rebound or guarding. Discharge Data Allergies Allergy/AdvReac Type Severity Reaction Status Date / Time clarithromycin Allergy Unknown Unknown Verified 09/08/20 16:00 remote reaction Consultations 09/05/20 08:26 Consult Gastroenterology Routine Procedures Performed Operation Date: 09/04/20 12:20 Actual Procedures p Robotic Laparoscopic Assisted Radical Retropubic Prostatectomy, Bilateral Pelvic Lymph Node Dissection(Not Applicable) - Roberto Mulligan DO Hospital Course (1) Prostate cancer: Status post prostatectomy earlier this weekcomplex case Recovery very much on pace Plan to DC drain today, plan to DC home We will cover with Cipro and Flagyl as a precautionary measure given rectal involvement We will remain on a low residue diet at home for the next 2 weeks Stool softeners at home Follow-up as an outpatient to review pathology Total Time Total Time Spent Total Time Spent (In Minutes): 10 minutes Total Time Includes: Examination of the Patient, Discharge Planning, Medication Reconciliation and Communication With Other Providers Discharge Plan Discharge Items Patient Disposition: Home - Self-Care Reason For Visit: Prostate Cancer Discharge Diagnosis: Prostate Cancer Activity: Per Instructions section Lifting: No more than 25 pounds Bathing Comment: You may shower when you get home Sexual Activity: Wait until after follow-up appointment Exercise/Sports: Gradually increase as tolerated Driving/Machine Use: Do not drive while on pain meds Non-emergency contact: Urologist Call non-emergency contact if: you have any medication questions, your pain is w orsening, you have a fever, your temperature is above 101.5, your wound has increased redness and your wound has increased drainage Follow-up/Referrals: Luis Miguel Sainz MD, FACS [Surgeon] - (Please call to schedule follow up within 2 weeks of discharge) Salvador Larios DO [Primary Care Provider] - Diet: Regular and Low Fiber Addtl Attending Provider Instructions: Please take all medications as prescribed and keep all follow-ups as scheduled. Please call our office at [phone] with any questions, concerns or need to reschedule appointments for any reason. We are happy to assist you Activity: We recommend having someone with you for the first few days after surgery to help care for you. For the first 2 weeks after surgery, we would like you to get up and walk around your house. However, we recommend limit physical activity that would increase your heart rate. This will allow your body to rest and heal. Take naps if you feel tired. Don't lift anything heavier than 10 pounds, mow the law or ride a bicycle until your follow-up appointment. Please avoid long car rides. Home Care: Unless directed otherwise, drink 6 to 8 glasses of water a day (enough to keep your urine light colored). This will also help keep a healthy flow of urine. We recommend using a stool softener for the first two weeks to avoid co nstipation. Lane Catheter or Suprapubic Catheter care: Keep the catheter well secured with either a leg back or leg strap with large bag. Empty your bag when it's about half full. You may notice some blood in the bag. This is normal after surgery and while the catheter is in place. Use mild soap (such as Dove or Dial) and water to wash the catheter and the head of your penis daily, or more frequently if needed. Return to your normal diet, we encourage good protein intake to promote healing. You may shower as normal. Please avoid tub baths or soaking until catheter removed and incisions well healed. Wearing sweat pants while you have the catheter is recommended, they will be more comfortable. Follow-up Your follow up appointments for having your catheter removed, and follow up with your physician should already be scheduled. If you have any questions regarding this, please contact our office. Your final pathology report will be discussed at your physician follow-up appointment. Call [facility] at [phone] right away if you have any of the following: Chest pain or trouble breathing (call 221 or go to the hospital) Fever of 101F or higher, uncontrolled vomiting Heavy bleeding, clots, or bright red blood from the catheter Catheter that falls out or stops draining Foul-smelling discharge from your catheter Redness, swelling, warmth, or increased pain at your incision site Drainage, pus, or bleeding from your incision Pending Studies at Discharge: Yes Studies:: pathology Stand-Alone Forms: My [facility], Opioid Pain Management, Work/School Release (Inpt), Smoking Cessation Medications and DC Order Prescriptions: New hydrocodone-acetaminophen 5-325 mg tablet 1 tab PO Q6H PRN (Reason: pain) Qty: 25 RF: 0 docusate sodium [Colace] 100 mg capsule 100 mg PO BID Qty: 60 RF: 1 ciprofloxacin HCl [Cipro] 500 mg tablet 500 mg PO BID Qty: 10 RF: 0 metronidazole [Flagyl] 500 mg tablet 500 mg PO BID Qty: 10 RF: 0 Continued ipratropium bromide 42 mcg (0.06 %) spray,non-aerosol 2 spray intranasal DAILY Qty: 3 RF: 3 Dupixent Syringe 300 mg/2 mL syringe 300 mg SQ .COMPLEX Qty: 12 RF: 3 turmeric root extract 500 mg capsule 500 mg PO QAM RF: 0 PreserVision AREDS [id number],160-113-100 vmkt-wm-cpam tablet 1 tab PO BID RF: 0 prevagen 1 tab PO QAM RF: 0 losartan 50 mg tablet 50 mg PO QAM Qty: 90 RF: 3 sildenafil 100 mg tablet 100 mg PO DIRECTED PRN (Reason: Erectile Dysfunction) RF: 0 ascorbic acid (vitamin C) 500 mg tablet 500 mg PO QAM RF: 0 Mucinex 1,200 mg tablet extended release 12hr 1,200 mg PO QAM RF: 0 aspirin 81 mg Tablet,Chewable 81 mg PO HS RF: 0 cholecalciferol (vitamin D3) [Vitamin D3] 5,000 unit Tablet 5,000 unit PO QAM RF: 0 [id number]-qkzfxvrrs-byp C-Mn [Glucosamine Chondroitin MaxStr] 500-400 mg capsule 1 cap PO QAM RF: 0 fluticasone propionate [Flonase Allergy Relief] 50 mcg/actuation spray,suspension 2 spray INTRANASAL HS RF: 0 garlic 1 tab PO DAILY RF: 0 Boost 1 PO DAILY RF: 0 Discontinued alfuzosin 10 mg tablet extended release 24 hr 10 mg PO QPM Qty: 90 RF: 2 No Action Eliquis 5 mg (74 tabs) tablets,dose pack See Rx Instructions .ROUTE .COMPLEX Qty: 74 RF: 0 Discharge Orders: Discharge Order (Routine); Ordered 09/07/20 Ordered By: Braydon Cook/Other Patient Handouts: Lane Catheter Removal, Low-Fiber Diet, Emptying and Cleaning Your ..., Indwelling Urinary Catheter Dc, Discharge Instructions Caring for ... Admission Data Admit Date/Time: 09/04/20 19:18 Attending Provider: Roberto Mulligan Admit Provider: Roberto Mulligan Primary Care Provider: Salvador Larios Providers: Obed Morris ; Braydon Zepeda Other Interventions: Discharge Summary Assessment (RN) Last Done: 09/07/20 13:04 Coding Level of Care Code D/C Day Management <30 mins Diagnoses Prostate cancer C61
== END 2020-09-07 15:11 | disposition home or self-care (01) | DRG 707 ==
LOC: ASU 10:38 → 3E 19:18

== ENCOUNTER 2021-05-22 11:52 | Inpatient (IN) ==
[2021-05-22] MEDS: SODIUM CHLORIDE 0.9% 1000ML 1,000 ML IV SCH ×2 (12:37→16:37)
[2021-05-22] MEDS ORDERED: ONDANSETRON INJ 2 MG/ML 2 ML VIAL ONE (12:38)
[2021-05-22 12:46] LABS: Basophils # (auto) 0.02 K/uL (0-0.2); Basophils % (auto) 0.1 %; Eosinophils # (auto) 0.07 K/uL (0-0.5); Eosinophils % (auto) 0.4 %; Hematocrit (blood only) 48.6 % (42-52); Hemoglobin 16.6 g/dL (14.0-18.0); Immature Granulocytes # (auto) 0.04 K/uL (0.00-0.02); Immature Granulocytes % (auto) 0.2 %; Lymphocytes # (auto) 0.87 K/uL (1.2-3.4); Lymphocytes % (auto) 5.4 %; Mean Corpuscular Hemoglobin 32.4 pg (25-34); Mean Corpuscular Hgb Conc 34.2 g/dL (32-36); Mean Corpuscular Volume 94.9 fL (80-100); Mean Platelet Volume 9.4 fL (7.4-10.4); Monocytes # (auto) 0.91 K/uL (0.11-0.59); Monocytes % (auto) 5.6 %; Neutrophils % (auto) 88.3 %; Platelet Count 322 K/uL (130-400); RDW Standard Deviation 45.1 fL (36.4-46.3); Red Blood Count 5.12 M/uL (4.7-6.1); White Blood Count 16.21 K/uL (4.8-10.8)
[2021-05-22 13:06] LABS: BUN Creatinine Ratio 15.3 (10-20); Blood Urea Nitrogen 20 mg/dl (7-18); Calcium 9.5 mg/dl (8.5-10.1); Carbon Dioxide 25 mmol/L (21-32); Chloride 105 mmol/L (98-107); Est GFR (African American) 61.6 ml/min; Est GFR (Non-African American) 53.1 ml/min; Glucose 150 mg/dl (70-99); Magnesium 2.6 mg/dl (1.8-2.4); Phosphorus 3.6 mg/dl (2.5-4.9); Potassium 4.6 mmol/L (3.5-5.1); Sodium 137 mmol/L (136-145)
--- NOTE | 2021-05-22 13:08 | XRay Report ---
KUB HISTORY: Acute generalized abdominal pain abd pain COMPARISON: CT abdomen and pelvis 04/20/2021 FINDINGS: There is mild gaseous distention of the splenic flexure with air-filled mildly dilated loop of small bowel within the abdominal left upper quadrant measuring 3.4 cm transversely. Mild to moder ate fecal retention. No renal calculi. No ureteral calculi. No pneumoperitoneum. Peripheral lucencies are noted within the medial border of the proximal descending colon, likely secondary to superimposi tion of the air-filled bowel loops. No fracture. IMPRESSION: 1. Mild to moderate fecal retention with nonobstructive bowel gas pattern. 2. Mild gaseous distention of the splenic flexure and left upper quadrant small bowel may be physiolo gic or represent a mild ileus. 3. Peripheral lucencies are noted adjacent to the medial border of the proximal descending colon, lik sean secondary to superimposition of the air-filled bowel loops. Pneumatosis could appear similarly ho wever is considered less likely. ACT 112: Negative or not required by law. The above report was generated using voice recognition software. It may contain grammatical, syntax o r spelling errors. Electronically signed by: Mark Dejesus M.D. 05/22/2021 1:07 PM
[2021-05-22] MEDS ORDERED: PROMETHAZINE HCL 12.5 MG in SODIUM CHLORIDE 0.9% 50 ML IV PRN (13:14)
[2021-05-22] MEDS ORDERED: HYDROmorphone INJ 0.5 MG/0.5 ML SYR IV PRN ×2 (13:14)
[2021-05-22] MEDS ORDERED: PROMETHAZINE HCL 25 MG in SODIUM CHLORIDE 0.9% 50 ML IV PRN (13:14)
[2021-05-22] MEDS ORDERED: SODIUM CHLORIDE 0.9% 1000ML 1,000 ML IV SCH (13:15)
[2021-05-22] MEDS ORDERED: PATIENT'S HEIGHT AND/OR WEIGHT NEEDED SCH (13:30)
--- NOTE | 2021-05-22 13:38 | History & Physical Report ---
Date of Service May 22, 2021 Assessment & Plan (1) Ileus, postoperative: Plan: Patient will be admitted to the hospital NG tube placement IV fluids with monitoring of electrolytes Antiemetics We will continue him on Ancef as he does have mesh in place Analgesics as needed Patient is essentially n.p.o. so he may need IV meds for hypertension We will asked the medical team to follow him I have ordered some antiacid IV for reflux Dr. Sainz will be following the patient over the weekend History of Present Illness Primary Care Provider: Salvador Larios DO Patient is 75-year-old male who is being admitted to the emergency room with bloating nausea vomiting and decreased bowel movement consistent with an ileus On 05/18/2021 he underwent laparoscopic incisional hernia repair Since then he has been having trouble having a bowel movement and has tried MiraLAX, mag citrate and began with nausea and vomiting today He does have a history of prior prostatectomy with colon injury and repair Right inguinal hernia repair Hypertension Allergies Allergy/AdvReac Type Severity Reaction Status Date / Time clarithromycin Allergy Unknown Unknown Verified 05/18/21 10:02 remote reaction Home Medications Medication Instructions Recorded Confirmed Type aspirin 81 mg chewable tablet 81 mg PO HS 03/24/18 05/18/21 History cholecalciferol (vitamin D3) 125 5,000 unit PO QAM 03/24/18 05/18/21 History mcg (5,000 unit) tablet (Vitamin D3) cckfbuogdyu-uvvaqusuh-kzv C-Mn 500 1 cap PO QAM cap 01/15/19 05/18/21 History mg-400 mg capsule (Glucosamine Chondroitin Maximum Strength) ascorbic acid (vitamin C) 500 mg 500 mg PO QAM 11/26/19 05/18/21 History tablet prevagen 1 tab PO QAM 02/20/20 05/18/21 History vitamins A,C,A-cyya-sftbnn 7,160 1 tab PO BID 02/20/20 05/18/21 History unit-113 mg-100 unit tablet (PreserVision AREDS) fluticasone propionate 50 2 spray INTRANASAL HS 07/17/20 05/18/21 History mcg/actuation nasal spray,suspension (Flonase Allergy Relief) guaifenesin 1,200 mg tablet, 1,200 mg PO QAM tab 07/17/20 05/18/21 History extended release 12 hr (Mucinex) ipratropium bromide 42 mcg (0.06 2 spray INTRANASAL HS 10/16/20 05/18/21 History %) nasal spray dupilumab 300 mg/2 mL subcutaneous 300 mg SQ .COMPLEX #8 ml 10/30/20 05/18/21 Rx syringe (Dupixent) losartan 50 mg tablet 50 mg PO QAM #90 tab 04/04/21 05/18/21 Rx tadalafil 5 mg tablet (Cialis) 5 mg PO HS #30 tab 04/20/21 05/18/21 Rx cephalexin 500 mg capsule 500 mg PO TID #15 cap 05/18/21 Rx hydrocodone 5 mg-acetaminophen 325 1 tab PO Q4H PRN #30 tab 05/18/21 Rx mg tablet Past Med/Surg History Medical History (Updated 05/22/21 @ 13:36 by Reddy Bay MD, FACS) BPH (benign prostatic hyperplasia) GERD (gastroesophageal reflux disease) Hearing loss History of anemia History of basal cell carcinoma of skin Leg History of blood clots DVT s/p prostatectomy (09/04/20), was on Eliquis/since discontinued, no issues since Hypertension Macular degeneration Nasal polyps Organic impotence Prostate cancer s/p prostatectomy (09/04/20) Surgical History (Updated 05/19/21 @ 08:25 by Dorothea Orr RN) H/O inguinal hernia repair RT History of bunionectomy (1997) Right History of cataract surgery R/L History of endoscopic sinus surgery History of herniorrhaphy (2017) Laparoscopy left inguinal hernia repair (06/20/17): Grade view 1, MAC#3, ETT 7.5 at [facility] Incisional umbilical hernia repair (04/11/18): LMA#5 at [facility] Right open inguinal hernia repair (12/15/20): LMA# 4.0 at [facility] History of incisional hernia repair (05/18/21) Laparoscopic incisional hernia repair. Dr. Bay 05/18/2021 History of prostate biopsy (06/27/20) [place] 4+4, 3+4 History of prostatectomy 09/04/2020 [facility]-RECTAL PERFORATION COMPLICATION-REPAIRED History of tonsillectomy and adenoidectomy Hx of colonoscopy with polypectomy [place] teeth removed Family History Mother , Passed age 80 of diabetic complications (brittle diabetic) Family history of diabetes mellitus Father , Passed age 57 from [place] Hypertension Brother , Passed in 70's of bladder cancer No problems noted. Brother Leukemia due to exposure at [employer] Brother , Passed in 70's of [place] No problems noted. Sister No problems noted. Son No problems noted. Daughter No problems noted. Other No family history of adverse response to anesthesia No family history of bleeding disorder Denies family history of Ovarian cancer Prostate cancer Breast cancer Colorectal cancer Social History Smoking Status: Never smoker Second Hand Exposure: No; Hx Alcohol Use: No Preferred Language: Portuguese Communication Ability: Effective Visual Impairment: No Limitations Hearing Ability: Use of Hearing Aid Offset Second Press Operator Required: No Beliefs That Will Affect Care: None marital status: Current Living Situation: Spouse current occupational status: retired current occupation: Retired [employer] How many Children do You have: 2 Feels Safe at Home: Yes Childhood Exposure to Second-Hand Smoke: No Diet Comment: Regular caffeine: Yes (occasional cup of coffee) during the past year weight has: remained stable Dental Care, Regularly: Yes Physical Activity Frequency: Daily Physical Activity Frequency Comment: yoga, hiking, biking, weights, line dance Seatbelt Use: always Sunscreen Use: Yes Assistive Devices: Glasses and Hearing Aid - Bilateral Review of Systems Review of Systems: All systems reviewed & are unremarkable except as noted in HPI & below Physical Exam Physical Exam: Patient is uncomfortable with bloated abdomen His vital signs are stable Constitutional: well developed and + ill appearing; no acute distress Eyes: + anicteric sclerae Respiratory: normal respiratory effort; no respiratory distress Cardiovascular: Rate/Rhythm: regular rate Gastrointestinal (Abdomen): Inspection/Auscultation: + abdomen distended His abdomen is distended he does have some bowel sounds but very diminished His dressings are dry He does not have significant tenderness Musculoskeletal: Head/Neck/Chest: head atraumatic Skin: no rashes, warm and dry Psychiatric: Orientation: alert Results & Data Results & Data ([facility]) Vital Signs (Past 12 Hours) Vital Signs Temp Pulse Resp BP Pulse Ox 05/22/21 12:01 36.4 C L 93 H 20 136/80 93 Diagnostic Findings His KUB shows very mildly dilated small bowel Significant feces in the colon Code Status & VTE Plan VTE Prophylaxis Plan VTE Prophylaxis will be ordered: Yes PG Care Time/CCT Total # of Minutes Spent Total Time Spent with Patient: Total time spent is greater than 50% in coordination of care (as documented) at patient's floor/unit and/or counseling patient: Coding Level of Care Code None Diagnoses Ileus, postoperative K91.89; K56.7
[2021-05-22] MEDS ORDERED: ALUMINUM/MAGNESIUM/SIMETH (MAALOX MAX) 30 ML UDC PO PRN (14:03)
--- NOTE | 2021-05-22 14:05 | Hospitalist Consultation ---
Date of Consultation May 22, 2021 Assessment & Plan (1) Ileus, postoperative: Mr. Pedro is a 75 year old male with a history of Hypertension, Prostate Cancer s/p Prostatectomy 09/04/20 complicated by rectal trauma and DVT, Nasal Polyps, GERD, Macular Degeneration, and an Incisional Hernia s/p Laparoscopic Hernia Repair 05/18/21 who was admitted today by Dr. Bay for a Postoperative Ileus. NGT tube was placed at 1355 and 1200 cc was extracted so far. Hospitalist service was consulted for medical management. Patient has not had a bowel movement since his surgery. In an effort to get his bowels to move, he used MiraLax and he drank a bottle of Mag citrate followed by a big glass of water. About an hour after using these things, he began to note significant abdominal distension and developed nausea and vomiting. The patient's contacted Dr. Bay office and they were referred to the ER today. Placement of the NG tube has reduced his abdominal distension and relieved his nausea. -- Patient is admitted to the hospital by Dr. Bay, Dr. Sainz to follow this weekend. -- NPO -- Bowel rest. -- NG tube placed -- Continue IV fluids. -- Monitor daily labs. -- Antiemetics as needed. -- Continue IV Ancef as per Dr. Bay -- Analgesics as needed. (2) Hypertension: BP is currently elevated, oral antihypertensives held. -- IV Hydralazine 10 mg q 4 hours as needed for SBP > or = 160 mmHg. (3) Prostate cancer: Patient underwent prostatectomy 09/04/20 that was complicated by a rectal tear and LLE DVT. -- DVT prophylaxis with Lovenox. -- Followed by [facility]. (4) S/P prostatectomy: (5) Left leg DVT: Postoperative LLE DVT following prostatectomy in August 2020. -- Finished Eliquis course. -- Lovenox DVT prophylaxis. Hospitalist service will continue to follow. Supervising Physician Co-Signing Physician Notes I personally saw and examined the patient. I verified all hernandez points and agree with Gurinder Gu PA-C with the following exceptions and/or additions: 75 year old male admission under general surgery for post op ileus. Medicine consulted for medical management. O/E WD/WN, no respiratory distress, awake and orientated A/P Post op ileus - management per surgery recommendations HTN - agree with hydralazine PRN above but will increase cut off to sBP > 180 Otherwise as above History of Present Illness Reason for Consultation: -- Medical Management. -- Post-op Ileus. Requesting Physician: Reddy Bay MD Attending Physician: Magen Ortiz History of Present Illness Mr. Pedro is a 75 year old male with a history of Hypertension, Prostate Cancer s/p Prostatectomy 09/04/20 complicated by rectal trauma and DVT, Nasal Polyps, GERD, Macular Degeneration, and an Incisional Hernia s/p Laparoscopic Hernia Repair 05/18/21 who was admitted today by Dr. Bay for a Postoperative Ileus. NGT tube was placed at 1355 and 1200 cc was extracted so far. Hospitalist service was consulted for medical management. Patient has not had a bowel movement since his surgery. In an effort to get his bowels to move, he used MiraLax and he drank a bottle of Mag citrate followed by a big glass of water. About an hour after using these things, he began to note significant abdominal distension and developed nausea and vomiting. The patient's contacted Dr. Bay office and they were referred to the ER today. Patient offers no other complaints. Placement of the NG tube has reduced his abdominal distension and relieved his nausea. Patient denies any fevers, chills, cough, sputum production, or any rep upper respiratory symptoms. He denies any chest pain, heaviness, tightness, pressure, or discomfort. He denies any shortness of breath or dyspnea on exertion. He has not had any palpitations, lightheaded spells, weak spells, dizzy spells, or any syncope. Allergies Allergy/AdvReac Type Severity Reaction Status Date / Time clarithromycin Allergy Unknown Unknown Verified 05/22/21 14:16 remote reaction Home Medications Medication Instructions Recorded Confirmed Type aspirin 81 mg chewable tablet 81 mg PO HS 03/24/18 05/22/21 History cholecalciferol (vitamin D3) 125 5,000 unit PO QAM 03/24/18 05/22/21 History mcg (5,000 unit) tablet (Vitamin D3) didpidmzuag-orhzfpihr-ape C-Mn 500 1 cap PO QAM cap 01/15/19 05/22/21 History mg-400 mg capsule (Glucosamine Chondroitin Maximum Strength) ascorbic acid (vitamin C) 500 mg 500 mg PO QAM 11/26/19 05/22/21 History tablet prevagen 1 tab PO QAM 02/20/20 05/18/21 History fluticasone propionate 50 2 spray INTRANASAL HS 07/17/20 05/22/21 History mcg/actuation nasal spray,suspension (Flonase Allergy Relief) guaifenesin 1,200 mg tablet, 1,200 mg PO QAM tab 07/17/20 05/22/21 History extended release 12 hr (Mucinex) ipratropium bromide 42 mcg (0.06 2 spray INTRANASAL HS 10/16/20 05/22/21 History %) nasal spray dupilumab 300 mg/2 mL subcutaneous 300 mg SQ .COMPLEX #8 ml 10/30/20 05/22/21 Rx syringe (Dupixent) losartan 50 mg tablet 50 mg PO QAM #90 tab 04/04/21 05/22/21 Rx vitamins A,C,X-pspg-fzplir 14,320 1 cap PO BID 05/22/21 05/22/21 History unit-226 mg-200 unit capsule (PreserVision AREDS) Patient History Medical History Anemia BPH (benign prostatic hyperplasia) GERD (gastroesophageal reflux disease) Hearing loss History of anemia History of basal cell carcinoma of skin Leg History of blood clots DVT s/p prostatectomy (09/04/20), was on Eliquis/since discontinued, no issues since Hypertension Macular degeneration Nasal polyps Organic impotence Prostate cancer s/p prostatectomy (09/04/20) Surgical History H/O inguinal hernia repair RT History of bunionectomy (1997) Right History of cataract surgery R/L History of endoscopic sinus surgery History of herniorrhaphy (2017) Laparoscopy left inguinal hernia repair (06/20/17): Grade view 1, MAC#3, ETT 7.5 at [facility] Incisional umbilical hernia repair (04/11/18): LMA#5 at [facility] Right open inguinal hernia repair (12/15/20): LMA# 4.0 at [facility] History of incisional hernia repair (05/18/21) Laparoscopic incisional hernia repair. Dr. Bay 05/18/2021 History of prostate biopsy (06/27/20) [place] 4+4, 3+4 History of prostatectomy 09/04/2020 [facility]-RECTAL PERFORATION COMPLICATION-REPAIRED History of tonsillectomy and adenoidectomy Hx of colonoscopy with polypectomy [place] teeth removed Family History Mother , Passed age 80 of diabetic complications (brittle diabetic) Family history of diabetes mellitus Father , Passed age 57 from [place] Hypertension Brother , Passed in 70's of bladder cancer No problems noted. Brother Leukemia due to exposure at [employer] Brother , Passed in 70's of [place] No problems noted. Sister No problems noted. Son No problems noted. Daughter No problems noted. 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 HEENT: Head is atraumatic, normocephalic. EOM's intact. Facies symmetric. No perioral cyanosis. NG tube in place with intermittent suction. NECK: No JVD. JVP is not elevated. Carotid upstrokes are + 2 bilaterally. No bruits are noted. CHEST/LUNGS: Clear to auscultation throughout all lung pérez. No wheezes, rales, or crackles. CVS: S1 and S2 are regular without murmurs, gallops, or rubs. PMI is nondisplaced. No lifts, heaves, or thrills. No abdominal aortic or renal bruits. ABDOMINAL EXAM: Bowel sounds are sluggish. Abdomen is distended, surgical wound is dressed. EXTREMITIES: No clubbing or cyanosis. No peripheral edema. Intact posterior tibial and radial pulses bilaterally. NEUROLOGIC EXAM: Patient is awake, alert, and oriented. Pleasant and cooperative. Answers questions appropriately. Speech is clear. Normal movement in all 4 extremities. Gait pattern is unremarkable. supervisor denture department shows NSR. Results & Data Results & Data ([facility]) Vital Signs (Past 12 Hours) Vital Signs Temp Pulse Resp BP Pulse Ox 05/22/21 12:01 36.4 C L 93 H 20 136/80 93 Laboratory Results Laboratory Results - last 24 hr 05/22/21 05/22/21 12:35 12:35 WBC 16.21 H RBC 5.12 Hgb 16.6 Hct 48.6 MCV 94.9 MCH 32.4 MCHC 34.2 RDW Std Deviation 45.1 RDW Coeff of Elias 13.0 Plt Count 322 MPV 9.4 Immature Gran % (Auto) 0.2 Neut % (Auto) 88.3 Lymph % (Auto) 5.4 [place] % (Auto) 5.6 Eos % (Auto) 0.4 Baso % (Auto) 0.1 Neut # (Auto) 14.30 H Lymph # (Auto) 0.87 L [place] # (Auto) 0.91 H Eos # (Auto) 0.07 Baso # (Auto) 0.02 Immature Gran # (Auto) 0.04 H Sodium 137 Potassium 4.6 Chloride 105 Carbon Dioxide 25 Anion Gap 7.0 BUN 20 H Creatinine 1.29 Est Cr Clr Drug Dosing Not Reportable Est GFR ( Amer) 61.6 Est GFR (Non-Af Amer) 53.1 BUN/Creatinine Ratio 15.3 Glucose 150 H Calcium 9.5 Phosphorus 3.6 Magnesium 2.6 H Diagnostic Findings KUB 05/22/21: FINDINGS: There is mild gaseous distention of the splenic flexure with air- filled mildly dilated loop of small bowel within the abdominal left upper quadrant measuring 3.4 cm transversely. Mild to moderate fecal retention. No renal calculi. No ureteral calculi. No pneumoperitoneum. Peripheral lucencies are noted within the medial border of the proximal descending colon, likely secondary to superimposition of the air-filled bowel loops. No fracture. IMPRESSION: 1. Mild to moderate fecal retention with nonobstructive bowel gas pattern. 2. Mild gaseous distention of the splenic flexure and left upper quadrant small bowel may be physiologic or represent a mild ileus. 3. Peripheral lucencies are noted adjacent to the medial border of the proximal descending colon, likely secondary to superimposition of the air-filled bowel loops. Pneumatosis could appear similarly however is considered less likely. Medications Administered Medications aspirin 81 mg chewable tablet 81 mg PO HS 03/24/18 [History Confirmed 05/18/21] cholecalciferol (vitamin D3) 125 mcg (5,000 unit) tablet (Vitamin D3) 5,000 unit PO QAM 03/24/18 [History Confirmed 05/18/21] jktmqnsozmt-snijthtjo-cfi C-Mn 500 mg-400 mg capsule (Glucosamine Chondroitin Maximum Strength) 1 cap PO QAM cap 01/15/19 [History Confirmed 05/18/21] ascorbic acid (vitamin C) 500 mg tablet 500 mg PO QAM 11/26/19 [History Confirmed 05/18/21] prevagen 1 tab PO QAM 02/20/20 [History Confirmed 05/18/21] fluticasone propionate 50 mcg/actuation nasal spray,suspension (Flonase Allergy Relief) 2 spray INTRANASAL HS 07/17/20 [History Confirmed 05/18/21] guaifenesin 1,200 mg tablet, extended release 12 hr (Mucinex) 1,200 mg PO QAM tab 07/17/20 [History Confirmed 05/18/21] ipratropium bromide 42 mcg (0.06 %) nasal spray 2 spray INTRANASAL HS 10/16/20 [History Confirmed 05/18/21] dupilumab 300 mg/2 mL subcutaneous syringe (Dupixent) 300 mg SQ .COMPLEX #8 ml 10/30/20 [Rx Confirmed 05/18/21] losartan 50 mg tablet 50 mg PO QAM #90 tab 04/04/21 [Rx Confirmed 05/18/21] vitamins A,C,T-bjgp-jhkdlv 14,320 unit-226 mg-200 unit capsule (PreserVision AREDS) 1 cap PO BID 05/22/21 [History Confirmed 05/22/21] Home Medications Al Hydrox/Mg Hydrox/Simethicone (Aluminum/Magnesium/Simeth (Maalox Max) 30 Ml Udc) 30 ml PO Q6H PRN PRN Reason: Indigestion Stop: 06/21/21 14:02 Heparin Sodium (Porcine) (Heparin Sod 5,000 Unit/0.5 Ml Vial) 5,000 units SQ Q12 IGOR Stop: 06/21/21 20:59 Hydromorphone HCl (Hydromorphone Inj 0.5 Mg/0.5 Ml Syr) 0.25 mg IV Q3RWA PRN PRN Reason: Pain Stop: 06/05/21 13:13 Hydromorphone HCl (Hydromorphone Inj 0.5 Mg/0.5 Ml Syr) 0.5 mg IV Q3HWA PRN PRN Reason: Moderate Pain Stop: 06/05/21 13:13 Sodium Chloride (Nss 1000ml) 1,000 mls @ 100 mls/hr IV .Q10H IGOR Stop: 06/21/21 12:14 Last Admin: 05/22/21 12:37 Dose: 100 mls/hr Documented by: Cefazolin Sodium (Ancef 1000mg) 1,000 mg in 7.5 mls @ 2.5 mls/min IV Q8H [facility]; Protocol Stop: 05/29/21 13:14 Promethazine HCl 12.5 mg/ (Sodium Chloride) 50.5 mls @ 204 mls/hr IV Q6H PRN PRN Reason: Nausea And Vomiting Stop: 06/21/21 13:13 Promethazine HCl 25 mg/ Sodium (Chloride) 51 mls @ 204 mls/hr IV Q6H PRN PRN Reason: Nausea And Vomiting Stop: 06/21/21 13:13 Famotidine 20 mg/ Syringe 5 mls @ 2.5 mls/min IV Q12 IGOR Stop: 06/21/21 20:59 Miscellaneous (Patient's Height And/Or Weight Needed) 1 ea N/A Q30M IGOR Stop: 06/21/21 13:29 Ondansetron HCl (Ondansetron Inj 2 Mg/Ml 2 Ml Vial) 4 mg IV [id number] PRN PRN Reason: Nausea Stop: 06/21/21 13:13 PG Care Time/CCT Total # of Minutes Spent Total Time Spent with Patient: Total time spent is greater than 50% in coordination of care (as documented) at patient's floor/unit and/or counseling patient: Coding Level of Care Code 90042 Inpt Consult Level 3 Diagnoses Ileus, postoperative K91.89; K56.7 Hypertension I10 Prostate cancer C61 S/P prostatectomy Z90.79 Left leg DVT I82.402 Time Spent (min) 60
[2021-05-22] MEDS ORDERED: hydrALAZINE HCL 20 MG/ML VIAL IV PRN ×2 (14:36→21:00)
[2021-05-22] MEDS: ceFAZolin 1000MG 1,000 MG/7.5 ML SYR IV SCH ×2 (14:50→22:03)
[2021-05-22] MEDS ORDERED: CHLORASEPTIC 1.4% SOLN 180 ML BTL MT PRN (16:54)
[2021-05-22] MEDS: CHLORASEPTIC 1.4% SOLN 180 ML BTL MT PRN ×3 (17:50→23:49)
[2021-05-22] MEDS: FAMOTIDINE 20 MG in SYRINGE 3 ML IV SCH (21:25)
[2021-05-22] MEDS: HEPARIN SOD 5,000 UNIT/0.5 ML VIAL SQ SCH (21:26)
[2021-05-23] MEDS: CHLORASEPTIC 1.4% SOLN 180 ML BTL MT PRN ×4 (02:37→23:24)
[2021-05-23] MEDS: SODIUM CHLORIDE 0.9% 1000ML 1,000 ML IV SCH ×3 (02:37→19:52)
--- NOTE | 2021-05-23 05:33 | Surgery Progress Note ---
Date of Service May 23, 2021 Assessment & Plan (1) Ileus, postoperative: Plan: Patient is status post laparoscopic repair of ventral hernia on 05/18/[address] Bay (postop day #4) He has been readmitted with a postoperative ileus proceeding as follows: Maintain n.p.o. status for the present time Continue NG tube. May consider a clamping trial as bowel function improves. Continue IV fluids to oral intake is adequate Continue analgesics Continue antiemetics Maintain patient on antibiotics in the form of Ancef as he has had mesh utilized during his above-noted hernia repair Encourage ambulation Subcutaneous heparin is in place for DVT prevention Admission and Anticipated Discharge Date Admission Date: May 22, 2021 Supervising Physician Co-Signing Physician Notes As per Natalio Saavedra physician bilingual executive assistant Patient resting comfortably no issues except he feels his mouth is dry states is passing flatus may have had a small bowel movement The abdomen is softly distended no localized tenderness NG drainage subsided dark in color nonbilious We will go ahead and give him some water sips and ice chips can have some loss injures or hard candy but leave NG tube in for today Recheck labs Subjective Patient is resting comfortably in bed. He denies any nausea or vomiting. He has not moved his bowels since admission to the hospital but he does note he is passing some flatus. He does note abdominal pain at his surgical incisions. Physical Exam Gastrointestinal (Abdomen): Abdomen is slightly distended. Bowel sounds are hypoactive. Incisions from hernia repair are covered with dressings that are clean dry and intact. Patient has appropriate pain at his surgical incisions with palpation Results & Data ([place]) Vital Signs (Past 12 Hours) Vital Signs Temp Pulse Resp BP Pulse Ox 05/22/21 22:06 37.1 C 91 H 16 159/80 H 93 PG Care Time/CCT Total # of Minutes Spent Total Time Spent with Patient: Total time spent is greater than 50% in coordination of care (as documented) at patient's floor/unit and/or counseling patient: Coding Level of Care Code 54819 Subseq Hosp Care Lvl 2 Diagnoses Ileus, postoperative K91.89; K56.7
[2021-05-23] MEDS: ceFAZolin 1000MG 1,000 MG/7.5 ML SYR IV SCH ×3 (06:25→23:10)
[2021-05-23] MEDS: FAMOTIDINE 20 MG in SYRINGE 3 ML IV SCH ×2 (08:36→20:27)
[2021-05-23] MEDS: ONDANSETRON INJ 2 MG/ML 2 ML VIAL IV PRN (08:43)
[2021-05-23 08:51] LABS: Basophils # (auto) 0.01 K/uL (0-0.2); Basophils % (auto) 0.1 %; Eosinophils # (auto) 0.07 K/uL (0-0.5); Eosinophils % (auto) 0.6 %; Hematocrit (blood only) 42.4 % (42-52); Hemoglobin 13.9 g/dL (14.0-18.0); Immature Granulocytes # (auto) 0.02 K/uL (0.00-0.02); Immature Granulocytes % (auto) 0.2 %; Lymphocytes # (auto) 0.72 K/uL (1.2-3.4); Mean Corpuscular Hemoglobin 31.7 pg (25-34); Mean Corpuscular Hgb Conc 32.8 g/dL (32-36); Mean Corpuscular Volume 96.8 fL (80-100); Mean Platelet Volume 9.1 fL (7.4-10.4); Monocytes # (auto) 1.06 K/uL (0.11-0.59); Monocytes % (auto) 8.9 %; Neutrophils # (auto) 10.07 K/uL (1.4-6.5); Neutrophils % (auto) 84.2 %; Platelet Count 241 K/uL (130-400); RDW Coefficient of Variation 13.1 % (11.5-14.5); RDW Standard Deviation 46.8 fL (36.4-46.3); Red Blood Count 4.38 M/uL (4.7-6.1); White Blood Count 11.95 K/uL (4.8-10.8)
[2021-05-23 09:24] LABS: BUN Creatinine Ratio 17.2 (10-20); Calcium 7.8 mg/dl (8.5-10.1); Creatinine Clr Calc Pharmacy 49.1 ml/min; Est GFR (African American) 65.9 ml/min; Est GFR (Non-African American) 56.8 ml/min; Potassium 4.3 mmol/L (3.5-5.1)
[2021-05-23] MEDS: HEPARIN SOD 5,000 UNIT/0.5 ML VIAL SQ SCH ×2 (10:09→20:27)
--- NOTE | 2021-05-23 13:04 | Hospitalist Progress Note ---
Date of Service May 23, 2021 Assessment & Plan (1) Ileus, postoperative: Plan: Recently had hernia surgery and was re admitted on account of illeus Currently NG tube in situ patient had 3 bowel movements today Tolerating ice chips Gen surgery on consult, appreciate recs (2) Hypertension: Plan: BP 138/74 today continue home meds (3) Prostate cancer: Plan: Patient underwent prostatectomy 09/04/20 that was complicated by a rectal tear and LLE DVT. -- DVT prophylaxis with Lovenox. -- Followed by [facility]. (4) S/P prostatectomy: Plan: as above (5) Left leg DVT: Plan: Postoperative LLE DVT following prostatectomy in August 2020. -- Finished Eliquis course. -- Lovenox DVT prophylaxis. Hospitalist service will continue to follow. Admission and Anticipated Discharge Date Admission Date: May 22, 2021 Subjective Patient seen and examined, said he had 3 bomel movements today, still NG insitu Review of Systems Review of Systems: All systems reviewed are negative, apart from the ones contained in the history. Physical Exam Physical Exam: The patient is awake, alert and oriented 3, well developed and well nourished, normocephalic and atraumatic, lying in bed and in no acute distress. HEENT--PERRL, EOMI, mucous membranes and oropharynx mildly dry, NG tube in situ Neck--supple. No JVD. No bruits. Thyroid normal, trachea midline, no adenopathy. Heart--normal S1 and S2. No murmurs, rubs or gallops. Lungs--clear bilaterally, no respiratory distress, no accessory muscle use. Abdomen--no bowel sound Extremities--no cyanosis or clubbing. No edema. Dermatologic--normal skin turgor, normal color, no abnormal lymph nodes, no rash. Neurologic--cranial nerves II through XII grossly intact. Rheumatologic--normal range of motion. Psychiatric--normal affect. Results & Data Results & Data ([facility]) Vital Signs (Past 12 Hours) Vital Signs Temp Pulse Resp BP Pulse Ox 05/23/21 08:06 97.7 F 89 16 138/74 94 Laboratory Results Laboratory Results - last 24 hr 05/22/21 05/22/21 05/23/21 12:35 13:50 08:35 WBC RBC Hgb Hct MCV MCH MCHC RDW Std Deviation RDW Coeff of Elias Plt Count MPV Immature Gran % (Auto) Neut % (Auto) Lymph % (Auto) [place] % (Auto) Eos % (Auto) Baso % (Auto) Neut # (Auto) Lymph # (Auto) [place] # (Auto) Eos # (Auto) Baso # (Auto) Immature Gran # (Auto) Sodium 137 143 Potassium 4.6 4.3 Chloride 105 111 H Carbon Dioxide 25 26 Anion Gap 7.0 5.0 BUN 20 H 21 H Creatinine 1.29 1.22 Est Cr Clr Drug Dosing Not Reportable 49.1 Est GFR ( Amer) 61.6 65.9 Est GFR (Non-Af Amer) 53.1 56.8 BUN/Creatinine Ratio 15.3 17.2 Glucose 150 H 124 H Calcium 9.5 7.8 L D Phosphorus 3.6 Magnesium 2.6 H SARS-CoV-2, RNA, NAAT NEGATIVE 05/23/21 08:35 WBC 11.95 H RBC 4.38 L Hgb 13.9 L Hct 42.4 MCV 96.8 MCH 31.7 MCHC 32.8 RDW Std Deviation 46.8 H RDW Coeff of Elias 13.1 Plt Count 241 MPV 9.1 Immature Gran % (Auto) 0.2 Neut % (Auto) 84.2 Lymph % (Auto) 6.0 [place] % (Auto) 8.9 Eos % (Auto) 0.6 Baso % (Auto) 0.1 Neut # (Auto) 10.07 H Lymph # (Auto) 0.72 L [place] # (Auto) 1.06 H Eos # (Auto) 0.07 Baso # (Auto) 0.01 Immature Gran # (Auto) 0.02 Sodium Potassium Chloride Carbon Dioxide Anion Gap BUN Creatinine Est Cr Clr Drug Dosing Est GFR ( Amer) Est GFR (Non-Af Amer) BUN/Creatinine Ratio Glucose Calcium Phosphorus Magnesium SARS-CoV-2, RNA, NAAT PG Care Time/CCT Total # of Minutes Spent Total Time Spent with Patient: Total time spent is greater than 50% in coordination of care (as documented) at patient's floor/unit and/or counseling patient: Coding Level of Care Code 75489 Subseq Hosp Care Lvl 2 Diagnoses Ileus, postoperative K91.89; K56.7 Hypertension I10 Prostate cancer C61 S/P prostatectomy Z90.79 Left leg DVT I82.402 Time Spent (min) 35
[2021-05-24] MEDS: SODIUM CHLORIDE 0.9% 1000ML 1,000 ML IV SCH ×3 (02:35→23:32)
[2021-05-24] MEDS: ONDANSETRON INJ 2 MG/ML 2 ML VIAL IV PRN (02:38)
[2021-05-24] MEDS: CHLORASEPTIC 1.4% SOLN 180 ML BTL MT PRN ×3 (02:44→08:01)
--- NOTE | 2021-05-24 05:29 | Surgery Progress Note ---
Date of Service May 24, 2021 Assessment & Plan (1) Ileus, postoperative: Plan: Patient is status post laparoscopic repair of ventral hernia on 05/18/[address] Bay (postop day #5) He has been readmitted with a postoperative ileus. Care to continue as follows: As the patient has had multiple liquid bowel movements may consider removing NG tube If NG tube removed we will consider initiating diet in the form of clear liquids Continue IV fluids to oral intake is adequate Continue analgesics Continue antiemetics Antibiotics in form of Ancef to continue as patient had mesh utilized during his hernia repair Encourage ambulation Patient continues to feel weak and deconditioned may consider physical therapy evaluation Subcutaneous heparin is in place for DVT prevention Admission and Anticipated Discharge Date Admission Date: May 22, 2021 Supervising Physician Co-Signing Physician Notes As per Natalio Burdick physician rn first assistant Patient feels much better this morning has had a few bowel movements is voiding fine no abdominal discomfort NG drainage decreased The abdomen is much softer dressings are all intact We will DC the NG tube cut back the IVs and started on clear liquids Subjective Patient is resting comfortably in bed. He denies any nausea vomiting. He notes he has had several bowel movements which were mostly liquid over the past 24 hours. He does report feeling generally weak and deconditioned. Physical Exam Gastrointestinal (Abdomen): Abdomen is soft. Has minimal distention. Bowel sounds are present. Patient has appropriate tenderness at recent surgical incisions. Results & Data ([facility]) Vital Signs (Past 12 Hours) Vital Signs Temp Pulse Resp BP Pulse Ox 05/23/21 22:45 37.8 C H 92 H 18 130/71 92 PG Care Time/CCT Total # of Minutes Spent Total Time Spent with Patient: Total time spent is greater than 50% in coordination of care (as documented) at patient's floor/unit and/or counseling patient: Coding Level of Care Code None Diagnoses Ileus, postoperative K91.89; K56.7
[2021-05-24] MEDS: ceFAZolin 1000MG 1,000 MG/7.5 ML SYR IV SCH ×3 (06:00→22:00)
[2021-05-24] MEDS: FAMOTIDINE 20 MG in SYRINGE 3 ML IV SCH ×2 (08:11→21:57)
[2021-05-24] MEDS: HEPARIN SOD 5,000 UNIT/0.5 ML VIAL SQ SCH ×2 (08:13→21:58)
--- NOTE | 2021-05-24 12:18 | Hospitalist Progress Note ---
Date of Service May 24, 2021 Assessment & Plan (1) Ileus, postoperative: Plan: Recently had hernia surgery and was re admitted on account of illeus Patient continues to have bowel movements. NG tube has been discontinued Advance diet as tolerated. Appreciate general surgery recs. (2) Hypertension: Plan: BP 136/67 today continue home meds (3) Prostate cancer: Plan: Patient underwent prostatectomy 09/04/20 that was complicated by a rectal tear and LLE DVT. -- DVT prophylaxis with Lovenox. -- Followed by [facility]. (4) S/P prostatectomy: Plan: as above (5) Left leg DVT: Plan: Postoperative LLE DVT following prostatectomy in August 2020. -- Finished Eliquis course. -- Lovenox DVT prophylaxis. Hospitalist service will continue to follow. Plan: Discharge plans per general surgery Admission and Anticipated Discharge Date Admission Date: May 22, 2021 Subjective Patient seen and examined today, continues to have bowel movements, NG tube has been discontinued Review of Systems Review of Systems: All systems reviewed are negative, apart from the ones contained in the history. Physical Exam Physical Exam: The patient is awake, alert and oriented 3, well developed and well nourished, normocephalic and atraumatic, lying in bed and in no acute distress. HEENT--PERRL, EOMI, mucous membranes and oropharynx mildly dry, NG tube in situ Neck--supple. No JVD. No bruits. Thyroid normal, trachea midline, no adenopathy. Heart--normal S1 and S2. No murmurs, rubs or gallops. Lungs--clear bilaterally, no respiratory distress, no accessory muscle use. Abdomen--no bowel sound Extremities--no cyanosis or clubbing. No edema. Dermatologic--normal skin turgor, normal color, no abnormal lymph nodes, no rash. Neurologic--cranial nerves II through XII grossly intact. Rheumatologic--normal range of motion. Psychiatric--normal affect. Results & Data Results & Data ([facility]) Vital Signs (Past 12 Hours) Vital Signs Temp Pulse Resp BP Pulse Ox 05/24/21 07:52 99.1 F 82 16 136/67 92 PG Care Time/CCT Total # of Minutes Spent Total Time Spent with Patient: Total time spent is greater than 50% in coordination of care (as documented) at patient's floor/unit and/or counseling patient: Coding Level of Care Code 98959 Subseq Hosp Care Lvl 2 Diagnoses Ileus, postoperative K91.89; K56.7 Hypertension I10 Prostate cancer C61 S/P prostatectomy Z90.79 Left leg DVT I82.402 Time Spent (min) 35
[2021-05-24 12:29] LABS: Hematocrit (blood only) 42.1 % (42-52); Hemoglobin 13.8 g/dL (14.0-18.0); Mean Corpuscular Hgb Conc 32.8 g/dL (32-36); Mean Corpuscular Volume 97.7 fL (80-100); Mean Platelet Volume 9.1 fL (7.4-10.4); Platelet Count 200 K/uL (130-400); RDW Coefficient of Variation 13.4 % (11.5-14.5); RDW Standard Deviation 48.2 fL (36.4-46.3); Red Blood Count 4.31 M/uL (4.7-6.1); White Blood Count 15.29 K/uL (4.8-10.8)
[2021-05-24 12:51] LABS: BUN Creatinine Ratio 23.2 (10-20); Creatinine Clr Calc Pharmacy 55.4 ml/min; Est GFR (African American) 76.3 ml/min; Est GFR (Non-African American) 65.9 ml/min; Potassium 3.7 mmol/L (3.5-5.1)
[2021-05-25] MEDS: ceFAZolin 1000MG 1,000 MG/7.5 ML SYR IV SCH ×3 (06:24→22:08)
[2021-05-25] MEDS ORDERED: TPN/PPN CONSULT PHARMACY PRN (06:33)
--- NOTE | 2021-05-25 06:34 | Surgery Progress Note ---
Date of Service May 25, 2021 Assessment & Plan (1) Ileus, postoperative: Plan: Patient is having loose bowel movements Some occasional mild pain No emesis with NG removed on clear liquids His abdomen is still mildly distended-he does have more active bowel sounds Dressings are dry We will continue on clear liquids, begin PPN for at least 1 to 2 days to improve protein status Try to check a C. difficile We will not advance diet yet-patient will need additional days in the hospital Admission and Anticipated Discharge Date Admission Date: May 22, 2021 Results & Data ([facility]) Vital Signs (Past 12 Hours) Vital Signs Temp Pulse Resp BP Pulse Ox 05/24/21 22:44 37.2 C 81 18 147/78 H 94 PG Care Time/CCT Total # of Minutes Spent Total Time Spent with Patient: Total time spent is greater than 50% in coordination of care (as documented) at patient's floor/unit and/or counseling patient: Coding Level of Care Code None Diagnoses Ileus, postoperative K91.89; K56.7
[2021-05-25 07:01] LABS: Hematocrit (blood only) 38.9 % (42-52); Hemoglobin 12.9 g/dL (14.0-18.0); Mean Corpuscular Hemoglobin 31.7 pg (25-34); Mean Corpuscular Hgb Conc 33.2 g/dL (32-36); Mean Corpuscular Volume 95.6 fL (80-100); Mean Platelet Volume 9.1 fL (7.4-10.4); Platelet Count 195 K/uL (130-400); RDW Coefficient of Variation 13.2 % (11.5-14.5); RDW Standard Deviation 45.9 fL (36.4-46.3); Red Blood Count 4.07 M/uL (4.7-6.1); White Blood Count 10.48 K/uL (4.8-10.8)
[2021-05-25 07:16] LABS: Potassium 3.6 mmol/L (3.5-5.1)
[2021-05-25 07:21] LABS: BUN Creatinine Ratio 19.6 (10-20); Calcium 7.6 mg/dl (8.5-10.1); Creatinine Clr Calc Pharmacy 58.1 ml/min; Est GFR (African American) 80.8 ml/min; Est GFR (Non-African American) 69.7 ml/min; Magnesium 2.1 mg/dl (1.8-2.4); Phosphorus 1.8 mg/dl (2.5-4.9)
[2021-05-25 07:24] LABS: Bilirubin,Total 0.3 mg/dl (0.2-1)
[2021-05-25] MEDS ORDERED: POTASSIUM PHOSPHATE 21 MMOL in SODIUM CHLORIDE 0.9% 500 ML IV ONE (08:15)
[2021-05-25] MEDS: ENOXAPARIN INJ 40 MG/0.4 ML SYR SQ SCH (08:59)
[2021-05-25] MEDS: SENNOSIDES 8.8 MG/5 ML UDC PO SCH ×2 (09:01→22:10)
[2021-05-25] MEDS: FAMOTIDINE 20 MG in SYRINGE 3 ML IV SCH ×2 (09:01→22:07)
--- NOTE | 2021-05-25 09:30 | Hospitalist Progress Note ---
Date of Service May 25, 2021 Assessment & Plan (1) Ileus, postoperative: Plan: Started following TURP in August 2020 with b/l pelvic lymph node dissection and repair of rectum which was found to be severely fixed at apex to rectal wall and then had right inguinal hernia repair with Dr Bay on 12/15/[address] Bay earlier this month with concerns for incisional hernia which was repaired with mesh on 05/18/21 and was discharged same day but unfortunately was not able to move bowels at home and developed worsening abdominal pain and nausea and found to have post-operative ileus, requiring admission NGT initially placed, but d/c on 05/24. Had been tolerating clear liquids, moving his bowels (4-5x on 05/24, checking cdiff) but developed worsening nausea and backed down to NPO Holding off on NGT at this time, but may need to replace if continued issues Ancef abx per surgery Continue famotidine IVP daily Lovenox SQ for DVT prophylaxis Pain control -- has not required anything. Added toradol if needed to avoid opiates at this time. has not utilized yet IVF provided NS +20K @ 70cc/hr until parenteral nutrition initiated --> Discussed with general surgery, and plans to initiate PPN 05/25 and will likely need to remain on this for several days while inpatient to help with protein/third spacing/facilitate healing Continue to monitor (2) Hypertension: Plan: BP 143/72 Holding losartan 50mg daily while NPO, resume when able Hydralazine available prn (3) Prostate cancer: Plan: Patient underwent prostatectomy 09/04/20 that was complicated by a rectal tear and LLE DVT at that time in August 2020 -- DVT prophylaxis with Lovenox. -- Followed by [facility] and will need continued follow up (4) S/P prostatectomy: Plan: as above (5) Left leg DVT: Plan: Postoperative LLE DVT following prostatectomy in August 2020. -- Finished Eliquis course. -- Lovenox DVT prophylaxis. Hospitalist service will continue to follow. (6) Hypophosphatemia: Plan: low on AM labs -- IV replacement ordered continue to monitor Plan: Discharge plans per general surgery -- to remain inpatient several more days started PPN today continue to monitor Admission and Anticipated Discharge Date Admission Date: May 22, 2021 Supervising Physician Co-Signing Physician Notes Attending Attestation - Chart reviewed in detail, care plan d/w GEOVANNA Concepcion. I agree w/ the hernandez components of her documentation. Magen Skaggs MD Subjective patient evaluated following lunch got zofran, not very effective and just got dose of phenergan patient states up until this point had been doing well, loose BM 4-5x yesterday, nothing since but is passing gas when up to urinate. Has not been ambulating much. To get PPN here today but will order maintenance IVF as making NPO for now. Per Dr Bay, patient may been here several more days, possible PICC line for continued nutrition. If NGT placed, may pursue further imaging with contrast but staying course for now. No fever, chills, chest pain, shortness of breath. Feeling like he has to vomit but nothing yet. Aware if persists may need placement of NGT again. Questions/concerns addressed at this time. Review of Systems Review of Systems: All systems reviewed & are unremarkable except as noted in HPI & below Physical Exam Physical Exam: The patient is awake, alert and oriented 3, well developed and well nourished, normocephalic and atraumatic, sitting up in bed, no acute distress but reported feeling nauseous HEENT--PERRL, EOMI, mucous membranes and oropharynx mildly dry Neck--supple. No JVD. No bruits. Thyroid normal, trachea midline, no adenopathy. Heart--normal S1 and S2. No murmurs, rubs or gallops. Lungs--clear bilaterally, no respiratory distress, no accessory muscle use. Abdomen-- +BS throughout, tympanic to percussion, slightly diminished LLQ, tender to palpation aide-incisionally, no guarding or rigidity Extremities--no cyanosis or clubbing. No edema. Dermatologic--normal skin turgor, normal color, no abnormal lymph nodes, no rash. Neurologic--no focal deficit, cranial nerves II through XII grossly intact. Psychiatric--AOx3, normal affect. Results & Data Results & Data ([facility]) Vital Signs (Past 12 Hours) Vital Signs Temp Pulse Resp BP Pulse Ox 05/25/21 07:29 36.9 C 82 16 143/74 H 95 05/24/21 22:44 37.2 C 81 18 147/78 H 94 Laboratory Results 05/25/21 05/25/21 05/25/21 Range/Units 06:51 06:51 06:51 WBC 10.48 (4.8-10.8) K/uL RBC 4.07 L (4.7-6.1) M/uL Hgb 12.9 L (14.0-18.0) g/dL Hct 38.9 L (42-52) % MCV 95.6 (80-100) fL MCH 31.7 (25-34) pg MCHC 33.2 (32-36) g/dL RDW Std Deviation 45.9 (36.4-46.3) fL RDW Coeff of Elias 13.2 (11.5-14.5) % Plt Count 195 (130-400) K/uL MPV 9.1 (7.4-10.4) fL Sodium 139 Cancelled (136-145) mmol/L Potassium 3.6 Cancelled (3.5-5.1) mmol/L Chloride 109 H Cancelled (98-107) mmol/L Carbon Dioxide 25 Cancelled (21-32) mmol/L Anion Gap 5.0 Cancelled (3-11) BUN 20 H Cancelled (7-18) mg/dl Creatinine 1.03 Cancelled (0.6-1.4) mg/dl Est Cr Clr Drug Dosing 58.1 Cancelled ml/min Est GFR ( Amer) 80.8 Cancelled ml/min Est GFR (Non-Af Amer) 69.7 Cancelled ml/min BUN/Creatinine Ratio 19.6 Cancelled (10-20) Glucose 107 H Cancelled (70-99) mg/dl Calcium 7.6 L Cancelled (8.5-10.1) mg/dl Phosphorus 1.8 L (2.5-4.9) mg/dl Magnesium 2.1 (1.8-2.4) mg/dl Total Bilirubin 0.3 (0.2-1) mg/dl AST 13 L (15-37) U/L ALT 12 (12-78) Alkaline Phosphatase 55 (45-117) U/L Triglycerides 162 H (0-150) mg/dl 05/24/21 05/24/21 Range/Units 12:23 12:23 WBC 15.29 H (4.8-10.8) K/uL RBC 4.31 L (4.7-6.1) M/uL Hgb 13.8 L (14.0-18.0) g/dL Hct 42.1 (42-52) % MCV 97.7 (80-100) fL MCH 32.0 (25-34) pg MCHC 32.8 (32-36) g/dL RDW Std Deviation 48.2 H (36.4-46.3) fL RDW Coeff of Elias 13.4 (11.5-14.5) % Plt Count 200 (130-400) K/uL MPV 9.1 (7.4-10.4) fL Sodium 141 (136-145) mmol/L Potassium 3.7 (3.5-5.1) mmol/L Chloride 109 H (98-107) mmol/L Carbon Dioxide 24 (21-32) mmol/L Anion Gap 8.0 (3-11) BUN 25 H (7-18) mg/dl Creatinine 1.08 (0.6-1.4) mg/dl Est Cr Clr Drug Dosing 55.4 ml/min Est GFR ( Amer) 76.3 ml/min Est GFR (Non-Af Amer) 65.9 ml/min BUN/Creatinine Ratio 23.2 H (10-20) Glucose 121 H (70-99) mg/dl Calcium 8.0 L (8.5-10.1) mg/dl Phosphorus (2.5-4.9) mg/dl Magnesium (1.8-2.4) mg/dl Total Bilirubin (0.2-1) mg/dl AST (15-37) U/L ALT (12-78) Alkaline Phosphatase (45-117) U/L Triglycerides (0-150) mg/dl PG Care Time/CCT Total # of Minutes Spent Total Time Spent with Patient: Total time spent is greater than 50% in coordination of care (as documented) at patient's floor/unit and/or counseling patient: Coding Level of Care Code 43557 Subseq Hosp Care Lvl 2 Diagnoses Ileus, postoperative K91.89; K56.7 Hypertension I10 Prostate cancer C61 S/P prostatectomy Z90.79 Left leg DVT I82.402 Hypophosphatemia E83.39
[2021-05-25] MEDS ORDERED: POTASSIUM PHOS 3 MMOL/1 ML INFUSION IV PRN (09:37)
--- NOTE | 2021-05-25 10:18 | Pharmacy Report ---
Pharmacy PN Initial Consult - Date of Service May 25, 2021 - Scope Pharmacy has been consulted to manage parenteral nutrition orders and order appropriate labs. As part of the Nutrition Support Team guidelines, pharmacy will work in conjunction with dietary when determining the patients caloric needs. - Subjective The patient is a 75 year old M admitted on 05/22/21 13:14 for nausea, vomiting, post-op ileus in the setting of laparoscopic hernia repair on 05/18. Pertinent PMH: * lap hernia repair 05/18 * GERD * DVT * anemia * HTN * prostate CA s/p prostatectomy - Objective Height: 5 ft 8 in Weight: 77.1 kg Diet: Clear Liquid Vascular Access:: Right antecubital peripheral Intake & Output (Last 24Hrs): Intake & Output 05/23/21 05/24/21 05/25/21 05/26/21 06:59 06:59 06:59 06:59 Intake Total 1400 / 1400 2980.833 / 2980.833 2355 / 2355 Output Total 1950 / 1950 503 / 503 51 / 51 Balance -550 / -550 2477.833 / 2477.833 2304 / 2304 Weight 77.1 kg UOP is not being measured Additional Fluid Losses/Gains:: NGT has been removed Reports of ongoing diarrhea Laboratory Data (Last 24 Hrs):: 05/24/21 05/25/21 05/25/21 12:23 06:51 06:51 Sodium 141 Cancelled 139 Potassium 3.7 Cancelled 3.6 Chloride 109 H Cancelled 109 H Carbon Dioxide 24 Cancelled 25 BUN 25 H Cancelled 20 H Creatinine 1.08 Cancelled 1.03 Glucose 121 H Cancelled 107 H Calcium 8.0 L Cancelled 7.6 L Phosphorus 1.8 L Magnesium 2.1 Total Bilirubin 0.3 AST 13 L ALT 12 Alkaline Phosphatase 55 Triglycerides 162 H Recent Pertinent Medications:: Famotidine IV NS @ 75cc/hr until PPN hung Hydromorphone IV PRN Senna Nutrition Assessment:: Please refer to the Notes section of the EMR for the most recent etl architect note. - Assessment Patient admitted on 05/22 due to NV, diagnosed with post-op ileus in the setting for lap hernia repair Surgeon has requested start of PPN due to concerns patient is progressing slowly and may not tolerate diet. NGT removed. Diarrhea noted in provider's notes. Bowel sounds present. Clear liquid diet ordered but not tolerating. Phos low on today's labs. KPhos 21mmol x 1 repletion ordered. - Plan For day 1 of PN administration, the following will be ordered: Macronutrients Amino acids 77 grams/day Dextrose 90 grams/day Lipids 50 grams/day Micronutrients Combined electrolytes 40 mL - contains 35 mEq Na, 20 meq K, 4.5 mEq Ca, 5 mEq Mg, 35 mEq Cl, 29.5 mEq acetate per 20 mL Sodium phosphate 0 MMol Sodium chloride 35 mEq Sodium acetate 40 mEq Potassium phosphate 21 mMol Potassium chloride 0 mEq Potassium acetate 10 mEq Magnesium sulfate 0 mEq Calcium gluconate 0 mEq Multivitamins 10 mL Trace Elements 1 mL Additional additives: n/a Total volume 1897 mL (Clinimix 4.25/5 with electrolytes) to be infused over 24 hrs plus 50gm lipids (250mL) infused over 6 hours will provide 1112 kcal/day Final osmolarity 889 mOsm/L (maximum for PPN is 900 mOsm/L) Labs to be ordered per PN order protocol Pharmacy will follow and adjust parenteral nutrition orders on a daily basis. Thank you.
[2021-05-25] MEDS: ONDANSETRON INJ 2 MG/ML 2 ML VIAL IV PRN (11:06)
[2021-05-25] MEDS ORDERED: KETOROLAC TROMETHAMINE 15 MG/ML VIAL IV PRN (12:58)
[2021-05-25] MEDS ORDERED: NSS + 20MEQ KCL 20 MEQ/1,000 ML BAG IV SCH (13:00)
[2021-05-25] MEDS ORDERED: Custom Peripheral Pn 1 ML in TPN BAG 0 ML IV SCH (16:00)
[2021-05-25] MEDS ORDERED: D5W IV SCH ×2 (16:00)
[2021-05-25] MEDS ORDERED: PERIPHERAL TPN IV SCH ×2 (16:00)
[2021-05-25] MEDS ORDERED: CLINOLIPID 20% IV FAT EMULSION 250 ML IV SCH (16:00)
[2021-05-25] MEDS ORDERED: AMINO ACIDS 4.25% IV SCH ×2 (16:00)
[2021-05-25] MEDS ORDERED: STOP CLINOLIPID ONE (22:00)
[2021-05-25] MEDS: FLUTICASONE PROPIONATE NA SPR 16 GM BTL SCH (22:12)
[2021-05-26] MEDS: ceFAZolin 1000MG 1,000 MG/7.5 ML SYR IV SCH ×3 (05:48→22:09)
--- NOTE | 2021-05-26 06:10 | Surgery Progress Note ---
Date of Service May 26, 2021 Assessment & Plan (1) Ileus, postoperative: Plan: Patient feeling much better this morning Less nausea Multiple loose bowel movements C. difficile negative His abdomen is much less distended He does have some bowel sounds but diminished Currently has PPN running Check a.m. labs Encourage ambulation Limit p.o. intake for now Remove abdominal sutures Admission and Anticipated Discharge Date Admission Date: May 22, 2021 Results & Data ([facility]) Vital Signs (Past 12 Hours) Vital Signs Temp Pulse Resp BP Pulse Ox 05/25/21 23:12 37.0 C 75 17 141/78 H 95 PG Care Time/CCT Total # of Minutes Spent Total Time Spent with Patient: Total time spent is greater than 50% in coordination of care (as documented) at patient's floor/unit and/or counseling patient: Coding Level of Care Code None Diagnoses Ileus, postoperative K91.89; K56.7
[2021-05-26 07:26] LABS: Potassium 3.5 mmol/L (3.5-5.1)
[2021-05-26 07:29] LABS: BUN Creatinine Ratio 23.1 (10-20); Calcium 7.5 mg/dl (8.5-10.1); Creatinine Clr Calc Pharmacy 63.7 ml/min; Est GFR (African American) 90.3 ml/min; Est GFR (Non-African American) 77.9 ml/min; Magnesium 2.1 mg/dl (1.8-2.4)
[2021-05-26 07:33] LABS: Phosphorus 2.5 mg/dl (2.5-4.9)
--- NOTE | 2021-05-26 09:00 | Hospitalist Progress Note ---
Date of Service May 26, 2021 Assessment & Plan (1) Ileus, postoperative: Plan: Started following TURP in August 2020 with b/l pelvic lymph node dissection and repair of rectum which was found to be severely fixed at apex to rectal wall and then had right inguinal hernia repair with Dr Bay on 12/15/[address] Bay earlier this month with concerns for incisional hernia which was repaired with mesh on 05/18/21 and was discharged same day but unfortunately was not able to move bowels at home and developed worsening abdominal pain and nausea and found to have post-operative ileus, requiring admission NGT initially placed, but d/c on 05/24. Had been tolerating clear liquids, moving his bowels (4-5x on 05/24, checking cdiff) but developed worsening nausea and backed down to NPO 05/25 Holding off on NGT at this time, but may need to replace if continued issues -- has continued to move his bowels today, increased BS this afternoon Ancef abx per surgery Continue famotidine IVP daily Lovenox SQ for DVT prophylaxis Pain control -- has not required anything. Added toradol if needed to avoid opiates at this time Continues on PPN (started 05/25) and will likely need to remain on this for several days while inpatient to help with protein/third spacing/facilitate healing No further IVF for now 20meq IV K to keep closer to ~4 provided. Mag wnl (2.1 and would like to keep close to ~2) Per surgery, sutures removed this morning, limited PO intake for now Encouraged ambulation --> witnessed again ambulating with Cassie this afternoon and reported additional multiple loose BMs Continue to monitor (2) Hypertension: Plan: BP 17/69 Holding losartan 50mg daily while NPO, resume when able Hydralazine available prn (3) Prostate cancer: Plan: Patient underwent prostatectomy 09/04/20 that was complicated by a rectal tear and LLE DVT at that time in August 2020 -- DVT prophylaxis with Lovenox. -- Followed by [facility] and will need continued follow up (4) S/P prostatectomy: Plan: as above (5) Left leg DVT: Plan: Postoperative LLE DVT following prostatectomy in August 2020. -- Finished Eliquis course. -- Lovenox DVT prophylaxis. (6) Hypophosphatemia: Plan: low on AM labs -- IV replacement ordered, normalized on repeat continue to monitor Plan: Discharge plans per general surgery Continue PPN , encouraged ambulation likely to remain inpatient additional 2-3 days per general surgery. Will need to work on regular bowel regimen at d/c to prevent recurrance. Reviewed warning signs with patient /decreased flatus/lack of BM daily and would continue supp continue to monitor Admission and Anticipated Discharge Date Admission Date: May 22, 2021 Supervising Physician Co-Signing Physician Notes Attending Attestation - Chart reviewed in detail, care plan d/w GEOVANNA Concepcion. I agree w/ the hernandez components of her documentation. Magen Skaggs MD Subjective patient evaluated this morning doing better no further n/v repeat KUb this morning c/w SBO vs ileus. Patient had multiple loose BM since KUB this morning. Continuing on PPN and will continue NPO x chips/sips and possibly increase diet tomorrow per surgery but will await offical eval in am. no fever, chills, chest pain, shortness of breath. Does have occasional cough and increased pain with such but no IS at bedside -- RN provided. Had been using at home since prior surgery without issues and when asked about how to use he stated "I just have to make sure I don't blow it off the charts" jokingly. Discussed conservative management and hopeful for self resolution without need for surgery. He notes Dr Bay has stated he would really not like to take to OR if could be avoided given mesh and multiple abd surgeries, already putting him at risk for obstruction in future. Bowels still hypoactive RLQ/RUQ but +BS LUQ/LLQ at this time. Encouraged continued ambulation in halls, which he has been able to do today and states pain much improved. Review of Systems Review of Systems: All systems reviewed & are unremarkable except as noted in HPI & below Physical Exam Physical Exam: The patient is awake, alert and oriented 3, well developed and well nourished, normocephalic and atraumatic, sitting up in bed, no acute distress but reported feeling nauseous HEENT--PERRL, EOMI, mucous membranes and oropharynx moist Neck--supple. No JVD. No bruits. Thyroid normal, trachea midline, no adenopathy. Heart--normal S1 and S2. No murmurs, rubs or gallops. Lungs--clear bilaterally, no respiratory distress, diminished in the bases (asked RN to obtain incentive spirometer), no accessory muscle use, on room air Abdomen-- +BS RLQ/RUQ, tympanic to percussion, slightly diminished LLQ/LUQ, dec reased distension, appropriately tender to palpation aide-incisionally (decreased), no guarding or rigidity Extremities--no cyanosis or clubbing. No edema. Dermatologic--normal skin turgor, normal color, no abnormal lymph nodes, no rash. Neurologic--no focal deficit, cranial nerves II through XII grossly intact. Psychiatric--AOx3, normal affect. Results & Data Results & Data ([facility]) Vital Signs (Past 12 Hours) Vital Signs Temp Pulse Resp BP Pulse Ox 05/26/21 07:55 37 C 73 16 127/69 94 05/25/21 23:12 37.0 C 75 17 141/78 H 95 Laboratory Results 05/26/21 05/26/21 05/26/21 Range/Units 12:34 05:46 05:40 Sodium 141 (136-145) mmol/L Potassium 3.5 (3.5-5.1) mmol/L Chloride 110 H (98-107) mmol/L Carbon Dioxide 25 (21-32) mmol/L Anion Gap 6.0 (3-11) BUN 22 H (7-18) mg/dl Creatinine 0.94 (0.6-1.4) mg/dl Est Cr Clr Drug Dosing 63.7 ml/min Est GFR ( Amer) 90.3 ml/min Est GFR (Non-Af Amer) 77.9 ml/min BUN/Creatinine Ratio 23.1 H (10-20) Glucose 104 H (70-99) mg/dl POC Glucose 99 110 H (70-99) mg/dl Calcium 7.5 L (8.5-10.1) mg/dl Phosphorus 2.5 (2.5-4.9) mg/dl Magnesium 2.1 (1.8-2.4) mg/dl 05/26/21 05/25/21 Range/Units 00:02 22:38 Sodium (136-145) mmol/L Potassium (3.5-5.1) mmol/L Chloride (98-107) mmol/L Carbon Dioxide (21-32) mmol/L Anion Gap (3-11) BUN (7-18) mg/dl Creatinine (0.6-1.4) mg/dl Est Cr Clr Drug Dosing ml/min Est GFR ( Amer) ml/min Est GFR (Non-Af Amer) ml/min BUN/Creatinine Ratio (10-20) Glucose (70-99) mg/dl POC Glucose 106 H 103 H (70-99) mg/dl Calcium (8.5-10.1) mg/dl Phosphorus (2.5-4.9) mg/dl Magnesium (1.8-2.4) mg/dl Diagnostic Findings KUB X-Ray 05/26/21 08:56 XR KUB/Abdomen 1 view CLINICAL HISTORY: r/o sbo TECHNIQUE: 1 view of the abdomen was obtained. Comparison: Comparison is made to prior radiographs 05/22/2021 FINDINGS: Lung bases are unremarkable. The osseous structures are grossly unremarkable. Multiple gas-distended loops of small bowel are seen measuring up to 43 mm in diameter. Small stool burden is seen. IMPRESSION: Multiple gas-distended loops of small bowel compatible with small bowel obstruction or ileus. ACT 112: Negative or not required by law. Electronically signed by: Philip Thacker M.D. 05/26/2021 9:09 AM PG Care Time/CCT Total # of Minutes Spent Total Time Spent with Patient: Total time spent is greater than 50% in coordination of care (as documented) at patient's floor/unit and/or counseling patient: Coding Level of Care Code 81039 Subseq Hosp Care Lvl 2 Diagnoses Ileus, postoperative K91.89; K56.7 Hypertension I10 Prostate cancer C61 S/P prostatectomy Z90.79 Left leg DVT I82.402 Hypophosphatemia E83.39
--- NOTE | 2021-05-26 09:11 | XRay Report ---
XR KUB/Abdomen 1 view CLINICAL HISTORY: r/o sbo TECHNIQUE: 1 view of the abdomen was obtained. Comparison: Comparison is made to prior radiographs 05/22/2021 FINDINGS: Lung bases are unremarkable. The osseous structures are grossly unremarkable. Multiple gas-distended loops of small bowel are seen measuring up to 43 mm in diameter. Small stool burden is seen. IMPRESSION: Multiple gas-distended loops of small bowel compatible with small bowel obstruction or ileus. ACT 112: Negative or not required by law. Electronically signed by: Philip Thacker M.D. 05/26/2021 9:09 AM
[2021-05-26] MEDS: ENOXAPARIN INJ 40 MG/0.4 ML SYR SQ SCH (10:09)
[2021-05-26] MEDS: FAMOTIDINE 20 MG in SYRINGE 3 ML IV SCH ×2 (10:09→20:54)
[2021-05-26] MEDS: SENNOSIDES 8.8 MG/5 ML UDC PO SCH ×2 (10:10→20:54)
[2021-05-26] MEDS: POTASSIUM CHLORIDE / WTR 10 MEQ/100 ML PLCT IV SCH ×2 (12:15→13:34)
[2021-05-26] MEDS ORDERED: CLINOLIPID 20% IV FAT EMULSION 250 ML IV SCH (16:00)
[2021-05-26] MEDS ORDERED: AMINO ACIDS 4.25% IV SCH (16:00)
[2021-05-26] MEDS ORDERED: D5W IV SCH (16:00)
[2021-05-26] MEDS ORDERED: PERIPHERAL TPN IV SCH (16:00)
[2021-05-26] MEDS: FLUTICASONE PROPIONATE NA SPR 16 GM BTL SCH (20:54)
[2021-05-26] MEDS ORDERED: STOP CLINOLIPID ONE (22:00)
[2021-05-27] MEDS: ceFAZolin 1000MG 1,000 MG/7.5 ML SYR IV SCH ×3 (06:10→22:58)
--- NOTE | 2021-05-27 06:26 | Surgery Progress Note ---
Date of Service May 27, 2021 Assessment & Plan (1) Ileus, postoperative: Plan: Patient has no significant complaints He has not had any emesis without his NG tube for 3 days He is having loose bowel movements and also passing flatus His abdomen is slightly distended and he does have some decreased bowel sounds His sutures have all been removed He is on PPN which we will continue We will try full liquids and limit his intake somewhat I suspect he will require 2-3 additional days in the hospital if he progresses Admission and Anticipated Discharge Date Admission Date: May 22, 2021 Results & Data ([facility]) Vital Signs (Past 12 Hours) Vital Signs Temp Pulse Resp BP Pulse Ox 05/26/21 22:25 36.6 C 80 18 142/78 H 94 PG Care Time/CCT Total # of Minutes Spent Total Time Spent with Patient: Total time spent is greater than 50% in coordination of care (as documented) at patient's floor/unit and/or counseling patient: Coding Level of Care Code None Diagnoses Ileus, postoperative K91.89; K56.7
[2021-05-27] MEDS: SENNOSIDES 8.8 MG/5 ML UDC PO SCH ×2 (08:01→21:41)
[2021-05-27] MEDS: FAMOTIDINE 20 MG in SYRINGE 3 ML IV SCH ×2 (08:02→21:45)
[2021-05-27] MEDS: ENOXAPARIN INJ 40 MG/0.4 ML SYR SQ SCH (08:02)
[2021-05-27 08:23] LABS: Hematocrit (blood only) 39.6 % (42-52); Hemoglobin 13.4 g/dL (14.0-18.0); Mean Corpuscular Hemoglobin 31.6 pg (25-34); Mean Corpuscular Hgb Conc 33.8 g/dL (32-36); Mean Corpuscular Volume 93.4 fL (80-100); Mean Platelet Volume 9.3 fL (7.4-10.4); Platelet Count 261 K/uL (130-400); RDW Coefficient of Variation 12.8 % (11.5-14.5); RDW Standard Deviation 43.5 fL (36.4-46.3); Red Blood Count 4.24 M/uL (4.7-6.1); White Blood Count 7.73 K/uL (4.8-10.8)
[2021-05-27 08:50] LABS: BUN Creatinine Ratio 25.3 (10-20); Calcium 8.3 mg/dl (8.5-10.1); Creatinine Clr Calc Pharmacy 65.1 ml/min; Est GFR (African American) 92.7 ml/min; Est GFR (Non-African American) 79.9 ml/min; Magnesium 2.3 mg/dl (1.8-2.4); Potassium 3.8 mmol/L (3.5-5.1)
--- NOTE | 2021-05-27 08:59 | Hospitalist Progress Note ---
Date of Service May 27, 2021 Assessment & Plan (1) Ileus, postoperative: Plan: Started following TURP in August 2020 with b/l pelvic lymph node dissection and repair of rectum which was found to be severely fixed at apex to rectal wall and then had right inguinal hernia repair with Dr Bay on 12/15/[address] Bay earlier this month with concerns for incisional hernia which was repaired with mesh on 05/18/21 and was discharged same day but unfortunately was not able to move bowels at home and developed worsening abdominal pain and nausea and found to have post-operative ileus, requiring admission NGT initially placed, but d/c on 05/24. Had been tolerating clear liquids, moving his bowels (4-5x on 05/24, checking cdiff) but developed worsening nausea and backed down to NPO 05/25 Holding off on NGT at this time, but may need to replace if continued issues -- has continued to move his bowels today, increased BS/BMs Ancef abx per surgery Sutures removed 05/26 Continue famotidine IVP daily Lovenox SQ for DVT prophylaxis Pain control -- HAS NOT REQUIRED ANYTHING. ADDED INCENTIVE SPIROMETER given bibasilar crackles (had been using at home but hadn't had while inpatient) and these are also improving Continues on PPN (started 05/25) and will likely need to remain on this for several days while inpatient to help with protein/third spacing/facilitate healing Clear liquid diet for today, per surgery anticipating inpatient stay additional 2-3 days Encouraged ambulation --> has been ambulating in the halls multiple times daily Continue to monitor (2) Hypertension: Plan: BP 152/80 Holding losartan 50mg daily while NPO, resume when able Hydralazine available prn (3) Prostate cancer: Plan: Patient underwent prostatectomy 09/04/20 that was complicated by a rectal tear and LLE DVT at that time in August 2020 -- DVT prophylaxis with Lovenox. -- Followed by [facility] and will need continued follow up (4) S/P prostatectomy: Plan: as above (5) Left leg DVT: Plan: Postoperative LLE DVT following prostatectomy in August 2020. -- Finished Eliquis course. -- Lovenox DVT prophylaxis. (6) Hypophosphatemia: Plan: low on AM labs -- IV replacement ordered, normalized on repeat continue to monitor Plan: Discharge plans per general surgery Continue PPN , encouraged ambulation Clear liquid diet today -- advance slowly per surgery -->likely to remain inpatient additional 2-3 days per general surgery. Will need to work on regular bowel regimen at d/c to prevent recurrance. Reviewed warning signs with patient /decreased flatus/lack of BM daily and would continue supp continue to monitor Admission and Anticipated Discharge Date Admission Date: May 22, 2021 Supervising Physician Co-Signing Physician Notes Attending Attestation - Chart reviewed in detail, care plan d/w GEOVANNA Concepcion. I agree w/ the hernandez components of her documentation. Magen Skaggs MD Subjective eval this afternoon doing well BM x 5 today tolerating diet but instructed to take it slow denies abd pain today and has been ambulating frequently possible advancement of diet tomorrow/dc in next 2 or so days per primary. mouth slightly dry and encouraged to push oral fluids - will hold off on resuming lisinopril until tomorrow morning. no fever, chills ,chest pain, shortness of breath, nausea, vomiting, dysuria at this time. Review of Systems Review of Systems: All systems reviewed & are unremarkable except as noted in HPI & below Physical Exam Physical Exam: The patient is awake, alert and oriented 3, well developed and well nourished, normocephalic and atraumatic, sitting up in bed, no acute distress but reported feeling nauseous HEENT--PERRL, EOMI, mucous membranes and oropharynx SLIGHTLY dry Neck--supple. No JVD. No bruits. Thyroid normal, trachea midline, no adenopathy. Heart--normal S1 and S2. No murmurs, rubs or gallops. Lungs--clear bilaterally, no respiratory distress, diminished in the bases (asked RN to obtain incentive spirometer), no accessory muscle use, on room air Abdomen-- +BS throughout, no pain reported but tender around previous incisions MUCH improved, less distension, incisions look good, no drainage Extremities--no cyanosis or clubbing. No edema. Dermatologic--normal skin turgor, normal color, no abnormal lymph nodes, no rash. Neurologic--no focal deficit, cranial nerves II through XII grossly intact. Psychiatric--AOx3, normal affect. Results & Data Results & Data ([facility]) Vital Signs (Past 12 Hours) Vital Signs Temp Pulse Resp BP Pulse Ox 05/27/21 07:51 36.9 C 83 18 152/80 H 91 05/26/21 22:25 36.6 C 80 18 142/78 H 94 Laboratory Results 05/27/21 05/27/21 05/27/21 Range/Units 12:49 07:48 07:48 WBC 7.73 (4.8-10.8) K/uL RBC 4.24 L (4.7-6.1) M/uL Hgb 13.4 L (14.0-18.0) g/dL Hct 39.6 L (42-52) % MCV 93.4 (80-100) fL MCH 31.6 (25-34) pg MCHC 33.8 (32-36) g/dL RDW Std Deviation 43.5 (36.4-46.3) fL RDW Coeff of Elias 12.8 (11.5-14.5) % Plt Count 261 (130-400) K/uL MPV 9.3 (7.4-10.4) fL Sodium 140 (136-145) mmol/L Potassium 3.8 (3.5-5.1) mmol/L Chloride 108 H (98-107) mmol/L Carbon Dioxide 25 (21-32) mmol/L Anion Gap 7.0 (3-11) BUN 23 H (7-18) mg/dl Creatinine 0.92 (0.6-1.4) mg/dl Est Cr Clr Drug Dosing 65.1 ml/min Est GFR ( Amer) 92.7 ml/min Est GFR (Non-Af Amer) 79.9 ml/min BUN/Creatinine Ratio 25.3 H (10-20) Glucose 111 H (70-99) mg/dl POC Glucose 139 H (70-99) mg/dl Calcium 8.3 L (8.5-10.1) mg/dl Phosphorus 3.2 (2.5-4.9) mg/dl Magnesium 2.3 (1.8-2.4) mg/dl 05/27/21 05/27/21 05/26/21 Range/Units 05:55 00:05 18:01 WBC (4.8-10.8) K/uL RBC (4.7-6.1) M/uL Hgb (14.0-18.0) g/dL Hct (42-52) % MCV (80-100) fL MCH (25-34) pg MCHC (32-36) g/dL RDW Std Deviation (36.4-46.3) fL RDW Coeff of Elias (11.5-14.5) % Plt Count (130-400) K/uL MPV (7.4-10.4) fL Sodium (136-145) mmol/L Potassium (3.5-5.1) mmol/L Chloride (98-107) mmol/L Carbon Dioxide (21-32) mmol/L Anion Gap (3-11) BUN (7-18) mg/dl Creatinine (0.6-1.4) mg/dl Est Cr Clr Drug Dosing ml/min Est GFR ( Amer) ml/min Est GFR (Non-Af Amer) ml/min BUN/Creatinine Ratio (10-20) Glucose (70-99) mg/dl POC Glucose 110 H 110 H 108 H (70-99) mg/dl Calcium (8.5-10.1) mg/dl Phosphorus (2.5-4.9) mg/dl Magnesium (1.8-2.4) mg/dl PG Care Time/CCT Total # of Minutes Spent Total Time Spent with Patient: Total time spent is greater than 50% in coordination of care (as documented) at patient's floor/unit and/or counseling patient: Coding Level of Care Code 08417 Subseq Hosp Care Lvl 2 Diagnoses Ileus, postoperative K91.89; K56.7 Hypertension I10 Prostate cancer C61 S/P prostatectomy Z90.79 Left leg DVT I82.402 Hypophosphatemia E83.39
[2021-05-27 09:00] LABS: Phosphorus 3.2 mg/dl (2.5-4.9)
[2021-05-27] MEDS ORDERED: D5W IV SCH (16:00)
[2021-05-27] MEDS ORDERED: PERIPHERAL TPN IV SCH (16:00)
[2021-05-27] MEDS ORDERED: AMINO ACIDS 4.25% IV SCH (16:00)
[2021-05-27] MEDS ORDERED: CLINOLIPID 20% IV FAT EMULSION 250 ML IV SCH (16:00)
[2021-05-27] MEDS: FLUTICASONE PROPIONATE NA SPR 16 GM BTL SCH (21:44)
[2021-05-27] MEDS ORDERED: STOP CLINOLIPID ONE (22:00)
[2021-05-28] MEDS: ceFAZolin 1000MG 1,000 MG/7.5 ML SYR IV SCH ×4 (07:17→21:27)
--- NOTE | 2021-05-28 08:15 | Surgery Progress Note ---
Date of Service May 28, 2021 Assessment & Plan (1) Ileus, postoperative: Plan: low fiber diet takes ibuprofen at home for foot pain ambulating Dr. Bay-advancing diet slowly, continue PPN and monitor progress Possible discharge in 1 to 2 days Admission and Anticipated Discharge Date Admission Date: May 22, 2021 Subjective some gas with multiple liquid BM overnight and this morning, feels ready for regular food, some left foot pain he has had in the past increased with amb Physical Exam Constitutional: WD/WN, vitals as above Gastrointestinal (Abdomen): Inspection/Auscultation: + abdomen distended (slightly) Percussion/Palpation: abdomen soft; abdomen nontender Musculoskeletal: left medial mid foot tenderness, some swelling Results & Data ([facility]) Vital Signs (Past 12 Hours) Vital Signs Temp Pulse Resp BP Pulse Ox 05/28/21 07:33 37.0 C 86 14 146/75 H 93 05/27/21 23:57 37.3 C 74 16 138/75 93 PG Care Time/CCT Total # of Minutes Spent Total Time Spent with Patient: Total time spent is greater than 50% in coordination of care (as documented) at patient's floor/unit and/or counseling patient: Coding Level of Care Code None Diagnoses Ileus, postoperative K91.89; K56.7
[2021-05-28] MEDS ORDERED: IBUPROFEN 600 MG TAB PO STA (08:17)
[2021-05-28] MEDS: LOSARTAN POTASSIUM 50 MG TAB PO SCH (08:36)
[2021-05-28] MEDS: ENOXAPARIN INJ 40 MG/0.4 ML SYR SQ SCH (08:37)
[2021-05-28] MEDS: SENNOSIDES 8.8 MG/5 ML UDC PO SCH ×2 (08:37→21:28)
[2021-05-28 08:39] LABS: BUN Creatinine Ratio 26.2 (10-20); Calcium 8.4 mg/dl (8.5-10.1); Est GFR (Non-African American) 82.9 ml/min; Magnesium 2.3 mg/dl (1.8-2.4); Phosphorus 3.1 mg/dl (2.5-4.9); Potassium 4.2 mmol/L (3.5-5.1)
[2021-05-28] MEDS: FAMOTIDINE 20 MG in SYRINGE 3 ML IV SCH ×2 (08:40→21:28)
--- NOTE | 2021-05-28 09:07 | Hospitalist Progress Note ---
Date of Service May 28, 2021 Assessment & Plan (1) Ileus, postoperative: Plan: Started following TURP in August 2020 with b/l pelvic lymph node dissection and repair of rectum which was found to be severely fixed at apex to rectal wall and then had right inguinal hernia repair with Dr Bay on 12/15/[address] Bay earlier this month with concerns for incisional hernia which was repaired with mesh on 05/18/21 and was discharged same day but unfortunately was not able to move bowels at home and developed worsening abdominal pain and nausea and found to have post-operative ileus, requiring admission NGT initially placed, but d/c on 05/24. Had been tolerating clear liquids, moving his bowels (4-5x on 05/24, checking cdiff) but developed worsening nausea and backed down to NPO 05/25 Holding off on NGT at this time, but may need to replace if continued issues -- has continued to move his bowels today, increased BS/BMs Ancef abx per surgery Sutures removed 05/26 Continue famotidine IVP daily Lovenox SQ for DVT prophylaxis Pain control -- HAS NOT REQUIRED ANYTHING. ADDED INCENTIVE SPIROMETER given bibasilar crackles (had been using at home but hadn't had while inpatient) and these are also improving Continues on PPN (started 05/25) and will likely need to remain on this for several days while inpatient to help with protein/third spacing/facilitate healing Clear liquid diet--> advanced to low fiber 05/28 Tolerated low fiber for breakfast without issues, taking it slow Continued ambulation --> does have spur to medial aspect of L foot, aggravated by walking. takes ibuprofen at home (I had ordered toradol in days past which was d/c'd?) -- ibuprofen ordered by primary service. added voltaren as needed to see if effective. possibly benefit from bringing in sneakers over his crocs Continue to monitor (2) Hypertension: Plan: BP stable, tolerating PO, losartan resumed continued to monitor Hydralazine available prn (3) Prostate cancer: Plan: Patient underwent prostatectomy 09/04/20 that was complicated by a rectal tear and LLE DVT at that time in August 2020 -- DVT prophylaxis with Lovenox. -- Followed by [facility] and will need continued follow up (4) S/P prostatectomy: Plan: as above (5) Left leg DVT: Plan: Postoperative LLE DVT following prostatectomy in August 2020. -- Finished Eliquis course. -- Lovenox DVT prophylaxis. (6) Hypophosphatemia: Plan: low on AM labs -- IV replacement ordered, normalized on repeat continue to monitor Plan: Discharge plans per general surgery Continue PPN for now diet advanced to low fiber anticipating 1-2 days more in hospital, THEN D/C HOME HOSPITALIST SERVICE WILL SIGN OFF AT THIS TIME. PLEASE CALL WITH ANY QUESTIONS/CONCERNS Admission and Anticipated Discharge Date Admission Date: May 22, 2021 Supervising Physician Co-Signing Physician Notes Attending Attestation - Chart reviewed in detail, care plan d/w GEOVANNA Concepcion. I agree w/ the hernandez components of her documentation. Magen Skaggs MD Subjective patient evaluated this morning doing well no abdominal pain or nausea continues to move his bowels advanced to low fiber diet this morning, taking it easy, and tolerated well aggravation of L foot (chronic issue) with ambulation and takes ibuprofen at home -- asked RN to administer dose as ordered by surgery. voltaren prn to see if effective as well no fever, chills, chest pain, shortness of breath, nausea, vomiting or dysuria at this time. Review of Systems Review of Systems: All systems reviewed & are unremarkable except as noted in HPI & below Physical Exam Physical Exam: The patient is awake, alert and oriented 3, well developed and well nourished, normocephalic and atraumatic, sitting up in bed, no acute distress but reported feeling nauseous HEENT--PERRL, EOMI, mucous membranes and oropharynx moist Neck--supple. No JVD. No bruits. Thyroid normal, trachea midline, no adenopathy. Heart--normal S1 and S2. No murmurs, rubs or gallops. Lungs--clear bilaterally, no respiratory distress, diminished in the bases (asked RN to obtain incentive spirometer), no accessory muscle use, on room air Abdomen-- +BS throughout, no pain reported but tender around previous incisions MUCH improved, slight distension, incisions look good, no drainage Extremities--no cyanosis or clubbing. No edema. Dermatologic--normal skin turgor, normal color, no abnormal lymph nodes, no rash. Neurologic--no focal deficit, cranial nerves II through XII grossly intact. Psychiatric--AOx3, normal affect. Results & Data Results & Data ([facility]) Vital Signs (Past 12 Hours) Vital Signs Temp Pulse Resp BP Pulse Ox 05/28/21 07:33 37.0 C 86 14 146/75 H 93 05/27/21 23:57 37.3 C 74 16 138/75 93 Laboratory Results 05/28/21 05/28/21 05/27/21 Range/Units 07:51 06:00 23:55 Sodium 138 (136-145) mmol/L Potassium 4.2 (3.5-5.1) mmol/L Chloride 107 (98-107) mmol/L Carbon Dioxide 23 (21-32) mmol/L Anion Gap 8.0 (3-11) BUN 23 H (7-18) mg/dl Creatinine 0.88 (0.6-1.4) mg/dl Est Cr Clr Drug Dosing 68.0 ml/min Est GFR ( Amer) 96.0 ml/min Est GFR (Non-Af Amer) 82.9 ml/min BUN/Creatinine Ratio 26.2 H (10-20) Glucose 113 H (70-99) mg/dl POC Glucose 119 H 124 H (70-99) mg/dl Calcium 8.4 L (8.5-10.1) mg/dl Phosphorus 3.1 (2.5-4.9) mg/dl Magnesium 2.3 (1.8-2.4) mg/dl 05/27/21 05/27/21 Range/Units 18:26 12:49 Sodium (136-145) mmol/L Potassium (3.5-5.1) mmol/L Chloride (98-107) mmol/L Carbon Dioxide (21-32) mmol/L Anion Gap (3-11) BUN (7-18) mg/dl Creatinine (0.6-1.4) mg/dl Est Cr Clr Drug Dosing ml/min Est GFR ( Amer) ml/min Est GFR (Non-Af Amer) ml/min BUN/Creatinine Ratio (10-20) Glucose (70-99) mg/dl POC Glucose 117 H 139 H (70-99) mg/dl Calcium (8.5-10.1) mg/dl Phosphorus (2.5-4.9) mg/dl Magnesium (1.8-2.4) mg/dl PG Care Time/CCT Total # of Minutes Spent Total Time Spent with Patient: Total time spent is greater than 50% in coordination of care (as documented) at patient's floor/unit and/or counseling patient: Coding Level of Care Code 96683 Subseq Hosp Care Lvl 2 Diagnoses Ileus, postoperative K91.89; K56.7 Hypertension I10 Prostate cancer C61 S/P prostatectomy Z90.79 Left leg DVT I82.402 Hypophosphatemia E83.39
--- NOTE | 2021-05-28 13:43 | Ultrasound Report ---
LEFT LOWER EXTREMITY VENOUS DOPPLER HISTORY: Acute pain of the left lower leg r/o DVT COMPARISON STUDY: Doppler 12/08/2020 FINDINGS: There is normal compressibility, flow, and augmentation within the left lower extremity bill p venous system. IMPRESSION: No DVT within the left lower extremity. ACT 112: Negative or not required by law. Electronically signed by: Mark Dejesus M.D. 05/28/2021 1:42 PM
[2021-05-28] MEDS: DICLOFENAC SOD 1% GEL 100 GM TUBE EXT PRN ×2 (13:46→21:30)
[2021-05-28] MEDS: IBUPROFEN 600 MG TAB PO SCH ×2 (13:50→21:28)
[2021-05-28] MEDS ORDERED: PERIPHERAL TPN IV SCH ×2 (16:00)
[2021-05-28] MEDS ORDERED: AMINO ACIDS 4.25% IV SCH ×2 (16:00)
[2021-05-28] MEDS ORDERED: CLINOLIPID 20% IV FAT EMULSION 250 ML IV SCH (16:00)
[2021-05-28] MEDS ORDERED: D5W IV SCH ×2 (16:00)
[2021-05-28] MEDS: FLUTICASONE PROPIONATE NA SPR 16 GM BTL SCH (21:28)
[2021-05-28] MEDS ORDERED: STOP CLINOLIPID ONE (22:00)
[2021-05-29] MEDS: IBUPROFEN 600 MG TAB PO SCH ×4 (02:37→21:23)
[2021-05-29] MEDS ORDERED: PERIPHERAL TPN IV SCH ×2 (04:00→16:00)
[2021-05-29] MEDS ORDERED: D5W IV SCH ×2 (04:00→16:00)
[2021-05-29] MEDS ORDERED: AMINO ACIDS 4.25% IV SCH ×2 (04:00→16:00)
[2021-05-29] MEDS: ceFAZolin 1000MG 1,000 MG/7.5 ML SYR IV SCH (05:50)
[2021-05-29 06:34] LABS: BUN Creatinine Ratio 28.3 (10-20); Calcium 8.2 mg/dl (8.5-10.1); Est GFR (Non-African American) 82.9 ml/min; Phosphorus 3.3 mg/dl (2.5-4.9); Potassium 4.2 mmol/L (3.5-5.1)
[2021-05-29 07:45] LABS: Magnesium 2.2 mg/dl (1.8-2.4)
--- NOTE | 2021-05-29 07:45 | Surgery Progress Note ---
Date of Service May 29, 2021 Assessment & Plan (1) Ileus, postoperative: Plan: Patient tolerating some low fiber diet Still having loose bowel movements but decreased No nausea or emesis since Tuesday-4 to 5 days We will continue him on PPN today Continue his low fiber diet Monitor his bowel movements Possible discharge 1 to 2 days Admission and Anticipated Discharge Date Admission Date: May 22, 2021 Results & Data ([facility]) Vital Signs (Past 12 Hours) Vital Signs Temp Pulse Resp BP Pulse Ox 05/29/21 07:42 36.9 C 86 16 130/70 94 05/29/21 00:30 37.0 C 87 16 123/72 93 PG Care Time/CCT Total # of Minutes Spent Total Time Spent with Patient: Total time spent is greater than 50% in coordination of care (as documented) at patient's floor/unit and/or counseling patient: Coding Level of Care Code None Diagnoses Ileus, postoperative K91.89; K56.7
[2021-05-29] MEDS: SENNOSIDES 8.8 MG/5 ML UDC PO SCH ×2 (07:49→21:25)
[2021-05-29] MEDS: LOSARTAN POTASSIUM 50 MG TAB PO SCH (07:51)
[2021-05-29] MEDS: ENOXAPARIN INJ 40 MG/0.4 ML SYR SQ SCH (07:51)
[2021-05-29] MEDS: FAMOTIDINE 20 MG in SYRINGE 3 ML IV SCH (07:51)
[2021-05-29] MEDS: DICLOFENAC SOD 1% GEL 100 GM TUBE EXT PRN ×2 (07:56→16:13)
[2021-05-29] MEDS: guaiFENesin 600 MG TABCR PO SCH (12:48)
[2021-05-29] MEDS ORDERED: CLINOLIPID 20% IV FAT EMULSION 250 ML IV SCH (16:00)
[2021-05-29] MEDS: FLUTICASONE PROPIONATE NA SPR 16 GM BTL SCH (21:23)
[2021-05-29] MEDS: FAMOTIDINE 20 MG TAB PO SCH (21:24)
[2021-05-29] MEDS: IPRATROPIUM BROMIDE NASAL SPRAY 0.06% 15ML NAE SCH (21:25)
[2021-05-29] MEDS ORDERED: STOP CLINOLIPID ONE (22:00)
[2021-05-30] MEDS: IBUPROFEN 600 MG TAB PO SCH ×4 (04:18→20:37)
[2021-05-30 07:47] LABS: BUN Creatinine Ratio 25.6 (10-20); Creatinine Clr Calc Pharmacy 65.1 ml/min; Est GFR (African American) 92.7 ml/min; Est GFR (Non-African American) 79.9 ml/min; Magnesium 2.3 mg/dl (1.8-2.4); Phosphorus 3.7 mg/dl (2.5-4.9); Potassium 4.4 mmol/L (3.5-5.1)
[2021-05-30] MEDS: guaiFENesin 600 MG TABCR PO SCH (08:06)
[2021-05-30] MEDS: LOSARTAN POTASSIUM 50 MG TAB PO SCH (08:06)
[2021-05-30] MEDS: FAMOTIDINE 20 MG TAB PO SCH ×2 (08:07→20:37)
[2021-05-30] MEDS: SENNOSIDES 8.8 MG/5 ML UDC PO SCH ×2 (08:07→20:38)
[2021-05-30] MEDS: ENOXAPARIN INJ 40 MG/0.4 ML SYR SQ SCH (08:07)
--- NOTE | 2021-05-30 12:14 | Surgery Progress Note ---
Date of Service May 30, 2021 Assessment & Plan (1) Ileus, postoperative: Plan: Patient here with post op ileus s/p lap incisional hernia repair He is having + bowel function, although stools have been loose He is tolerating small amounts of a low fiber diet, limited by feelings of fullness. On Boost supplements We will talk to pharmacy about continuing PPN but possibly at half the calories We will continue to monitor Admission and Anticipated Discharge Date Admission Date: May 22, 2021 Supervising Physician Co-Signing Physician Notes Patient seen and examined, with above. Status post laparoscopic recurrent incisional hernia complicated by postoperative ileus. He is having multiple loose bowel movements. Tolerating simvastatin. Exam unremarkable. Plan to continue diet, TPN, not quite ready for discharge. Subjective Patient says he is doing well. Still with some abdominal bloating. He is tolerating small amounts of low fiber diet. + gas and having loose stools. Denies pain. Physical Exam Physical Exam: awake/alert Gastrointestinal (Abdomen): Inspection/Auscultation: + abdomen distended Percussion/Palpation: abdomen soft; abdomen nontender Results & Data ([facility]) Vital Signs (Past 12 Hours) Vital Signs Temp Pulse Resp BP Pulse Ox 05/30/21 07:39 36.8 C 80 16 112/65 95 PG Care Time/CCT Total # of Minutes Spent Total Time Spent with Patient: Total time spent is greater than 50% in coordination of care (as documented) at patient's floor/unit and/or counseling patient: Coding Level of Care Code None Diagnoses Ileus, postoperative K91.89; K56.7
[2021-05-30] MEDS ORDERED: CLINOLIPID 20% IV FAT EMULSION 250 ML IV SCH (16:00)
[2021-05-30] MEDS ORDERED: PERIPHERAL TPN IV SCH (16:00)
[2021-05-30] MEDS ORDERED: AMINO ACIDS 4.25% IV SCH (16:00)
[2021-05-30] MEDS ORDERED: D5W IV SCH (16:00)
[2021-05-30] MEDS: FLUTICASONE PROPIONATE NA SPR 16 GM BTL SCH (20:37)
[2021-05-30] MEDS: IPRATROPIUM BROMIDE NASAL SPRAY 0.06% 15ML NAE SCH (20:38)
[2021-05-30] MEDS: DICLOFENAC SOD 1% GEL 100 GM TUBE EXT PRN (20:39)
[2021-05-30] MEDS ORDERED: STOP CLINOLIPID ONE (22:00)
[2021-05-31] MEDS: IBUPROFEN 600 MG TAB PO SCH ×2 (03:04→07:54)
[2021-05-31] MEDS: ENOXAPARIN INJ 40 MG/0.4 ML SYR SQ SCH (07:52)
[2021-05-31] MEDS: DICLOFENAC SOD 1% GEL 100 GM TUBE EXT PRN (07:52)
[2021-05-31] MEDS: FAMOTIDINE 20 MG TAB PO SCH (07:54)
[2021-05-31] MEDS: SENNOSIDES 8.8 MG/5 ML UDC PO SCH (07:55)
[2021-05-31] MEDS: LOSARTAN POTASSIUM 50 MG TAB PO SCH (07:55)
[2021-05-31] MEDS: guaiFENesin 600 MG TABCR PO SCH (07:55)
--- NOTE | 2021-05-31 09:13 | Surgery Progress Note ---
Date of Service May 31, 2021 Assessment & Plan (1) Ileus, postoperative: Plan: post op ileus s/p lap incisional hernia repair appetite improved stop PPN home in the next 24 hours Admission and Anticipated Discharge Date Admission Date: May 22, 2021 Supervising Physician Co-Signing Physician Notes Patient seen and examined, agree with above. Status post laparoscopic recurrent incisional hernia complicated by postoperative ileus. Tolerated more food today. Bowel movements are becoming more solid. Feels much better. Exam unremarkable. May discharge this afternoon if feeling well. Follow-up with Dr. Bay as scheduled Subjective feeling better, BM forming, appetite improving Physical Exam Gastrointestinal (Abdomen): Inspection/Auscultation: + abdomen distended (slight) Percussion/Palpation: abdomen soft; abdomen nontender Results & Data ([facility]) Vital Signs (Past 12 Hours) Vital Signs Temp Pulse Resp BP Pulse Ox 05/31/21 08:05 36.8 C 75 18 116/70 94 05/30/21 22:27 36.8 C 78 20 138/76 94 PG Care Time/CCT Total # of Minutes Spent Total Time Spent with Patient: Total time spent is greater than 50% in coordination of care (as documented) at patient's floor/unit and/or counseling patient: Coding Level of Care Code None Diagnoses Ileus, postoperative K91.89; K56.7
--- NOTE | 2021-06-16 14:10 | Discharge Summary ---
Date of Service June 16, 2021 Admission HPI Per Admitting Provider Patient is 75-year-old male who is being admitted to the emergency room with bloating nausea vomiting and decreased bowel movement consistent with an ileus On 05/18/2021 he underwent laparoscopic incisional hernia repair Since then he has been having trouble having a bowel movement and has tried MiraLAX, mag citrate and began with nausea and vomiting today He does have a history of prior prostatectomy with colon injury and repair Right inguinal hernia repair Hypertension Principal Diagnosis Postoperative ileus Discharge Exam Constitutional WD/WN, vitals as above Gastrointestinal (Abdomen) Inspection/Auscultation: + abdominal surgical incision (dry); abdomen not distended Percussion/Palpation: abdomen soft; abdomen nontender Discharge Data Allergies Allergy/AdvReac Type Severity Reaction Status Date / Time clarithromycin Allergy Unknown Unknown Verified 05/22/21 14:16 remote reaction Consultations 05/22/21 13:22 Consult Hospitalist Stat Ordered Studies 05/28/21 13:30 US venous doppler LE LT Urgent Hospital Course (1) Ileus, postoperative: 75 y/o male was referred to ER for admission 4 days after outpatient laparoscopic ventral hernia repair with 15 cm mesh for complaints of nausea and bloating. Evaluation was consistent with ileus, NG was placed and he was admitted to the surgical service. After 3 days he had some returning bowel function and the NG was removed. He had also been started on PPN. Clear liquids were introduced on day 4. He began having multiple loose BMs but remained somewhat distended. His diet was advanced slowly over the next several days and PPN was discontinued. By day 9 he had adequate oral intake, his bowel movements were more formed. He was stable for discharge home. Total Time Total Time Spent Total Time Spent (In Minutes): 20 Discharge Plan Discharge Items Patient Disposition: Home - Self-Care Reason For Visit: NAUSEA AND VOMITING Discharge Diagnosis: post operative ileus Activity: Per Instructions section Lifting: No more than 25 pounds Bathing Comment: may shower; no soaking in tubs/pools Sexual Activity: When tolerated Exercise/Sports: Wait until after follow-up appointment Driving/Machine Use: Resume 1 day after discharge Non-emergency contact: Surgeon Call non-emergency contact if: you have any medication questions, your symptoms worsen, your pain is not controlled, your pain is concerning for you, you have a fever, your temperature is above 101.5, your wound has increased redness, your wound has increased drainage and your wound pain has increased Follow-up/Referrals: Reddy Bay MD, FACS [Emergency Provider] - Salvador Larios DO [Primary Care Provider] - 06/15/21 10:00 am Diet: Low Fiber Addtl Attending Provider Instructions: SPECIAL CARE INSTRUCTIONS: * Cover incisions and change daily for comfort/drainage. * May use ibuprofen for pain as tolerated. * Expect some swelling and bruising. Call your doctor if: * Temperature above 101 degrees * Pain not relieved by pain medicine ordered * There is increased drainage or redness from any incision * You have any unanswered questions or concerns [phone] FOLLOW UP VISIT: If not already scheduled, please call the office for a follow-up visit. OFFICE PHONE NUMBER: Dr. Bay Office Pending Studies at Discharge: No Stand-Alone Forms: My [facility] ([place]), Smoking Cessation Medications and DC Order Prescriptions: Continued Dupixent Syringe 300 mg/2 mL syringe 300 mg SQ .COMPLEX Qty: 8 RF: 3 losartan 50 mg tablet 50 mg PO QAM Qty: 90 RF: 3 prevagen 1 tab PO QAM RF: 0 ascorbic acid (vitamin C) 500 mg tablet 500 mg PO QAM RF: 0 Mucinex 1,200 mg tablet extended release 12hr 1,200 mg PO QAM RF: 0 aspirin 81 mg Tablet,Chewable 81 mg PO HS RF: 0 cholecalciferol (vitamin D3) [Vitamin D3] 5,000 unit Tablet 5,000 unit PO QAM RF: 0 wncsgpmiaiu-fmsjelsqx-eok C-Mn [Glucosamine Chondroitin MaxStr] 500-400 mg capsule 1 cap PO QAM RF: 0 fluticasone propionate [Flonase Allergy Relief] 50 mcg/actuation spray,suspension 2 spray INTRANASAL HS RF: 0 ipratropium bromide 42 mcg (0.06 %) spray,non-aerosol 2 spray intranasal HS RF: 0 PreserVision AREDS [id number] edtf-xt-maia Capsule 1 cap PO BID RF: 0 Discharge Orders: Discharge Order (Routine); Ordered 05/31/21 Ordered By: Freddy Hinton Admission Data Admit Date/Time: 05/22/21 13:14 Attending Provider: Reddy Bay Admit Provider: Reddy Bay Primary Care Provider: Salvador Larios Other Providers: Reid Salvador ; Violet Concepcion ; Magen Skaggs ; Reddy Dominguez ; Cecilio Mejia ; Ugo Liao ; Philip Hernandes ; Milton Hou ; Sabrina Lewis ; Diana Olvera ; Jori Galdamez ; Carlotta Jennings ; Jeannie Delong ; Benjamin Del Valle ; Salvador Talamantes ; Nate Joiner ; Violet Aranda ; Jose Armando Vasquez ; Maikel Nunez ; Braydon Valle ; Magen Ortiz ; Clinton Peng ; Jelly Braswell ; Deb Lucio ; Jeremi Murrieta ; Carlotta Paulson ; Jessee John ; Dulce Mo ; Eduar Fletcher Other Interventions: Discharge Summary Assessment (RN) Last Done: 05/31/21 11:17 Coding Level of Care Code D/C DAY MANAGEMENT <30 MINS Diagnoses Ileus, postoperative K91.89; K56.7
== END 2021-05-31 14:23 | disposition home or self-care (01) | DRG 394 ==
LOC: ED 11:52 → SUATTDRO 13:14 → 3E 13:14